=== PATIENT | female | born 1935 | race Caucasian/White ===

== ENCOUNTER 2016-11-06 09:30 | Emergency (ER) | payer OTHER ==
[2016-11-06 09:34] VITALS: TEMP 98.4; BMI 22.2
[2016-11-06] MEDS ORDERED: SODIUM CHLORIDE 1,000 ML IV SCH (10:00)
[2016-11-06 10:17] LABS: BASOPHIL 0.8 % (0-2.0); EOSINOPHIL 0.8 % (0-4.5); MCH 30.3 pg (25.7-33.7); MCHC 33.7 g/dl (32.0-36.0); MEAN CELL VOLUME 89.8 fl (80-96); MEAN PLT VOLUME 9.1 fl (7.5-11.1); NEUTROPHILS 56.3 % (42.8-82.8); PLATELET COUNT 276 K/MM3 (134-434); RDW 12.9 % (11.6-15.6); WHITE BLOOD COUNT 8.3 K/mm3 (4.0-10.0)
--- NOTE | 2016-11-06 10:44 | PDOC ---
History of Present Illness - General History Source: Patient Exam Limitations: No Limitations - History of Present Illness Initial Comments: 11/06/16 10:46 The patient is a 81 year old female, with a significant past medical history of hypertension, hyperlipidemia, and diabetes(NIDDM), who presents to the emergency department sent by Dr. Miller for evaluation of diarrhea. Dr. Miller reports the patients diarrhea has been going on for about 1 week. The patient describes her diarrhea as watery and black. Patient reports her stomach grumbles prior to an episode. She denies any associated abdominal pain, nausea , vomiting, hematochezia, or constipation. She denies any fever, chills, headache, or dizziness. She denies any recent travel or sick contacts. She denies any history of GI bleeds. Patient is compliant with her medications. Allergies: NKDA Past Surgical History: Appendectomy Social History: Non smoker. No ETOH or drug use PCP: Dr. Miller <Kaylyn Tamayo - Last Filed: 11/06/16 14:42> <Quinn Hilario - Last Filed: 11/06/16 15:06> - General Chief Complaint: Diarrhea Stated Complaint: DIARRHEA (PCP SENT) Time Seen by Provider: 11/06/16 09:46 Past History <Kaylyn Tamayo - Last Filed: 11/06/16 14:42> - Past Medical History Diabetes: Yes HTN: Yes Hypercholesterolemia: Yes Other medical history: SINUS PROBLEMS - Surgical History Abdominal Surgery: Yes (BLADDER LIFT) Appendectomy: Yes - Immunization History Immunization Up to Date: Yes - Psycho/Social/Smoking Cessation Hx Anxiety: No Suicidal Ideation: No Smoking History: Never smoked Hx Alcohol Use: No Drug/Substance Use Hx: No Substance Use Type: None <Quinn Hilario - Last Filed: 11/06/16 15:06> - Past Medical History Allergies/Adverse Reactions: Allergies Allergy/AdvReac Type Severity Reaction Status Date / Time No Known Allergies Allergy Verified 11/06/16 09:34 Home Medications: Ambulatory Orders Glimepiride 4 mg PO DAILY 11/25/13 Metoprolol Succinate [Toprol XL -] 25 mg PO DAILY 11/25/13 Simvastatin 10 mg PO HS 11/25/13 Lisinopril [Prinivil -] 20 mg PO DAILY 12/02/13 Pantoprazole Sodium [Protonix -] 40 mg PO BID #14 tablet.ec 11/06/16 Review of Systems - Review of Systems Able to Perform ROS?: Yes Comments:: 11/06/16 10:46 GENERAL/CONSTITUTIONAL: No fever or chills. No weakness. HEAD, EYES, EARS, NOSE AND THROAT: No change in vision. No ear pain or discharge. No sore throat. CARDIOVASCULAR: No chest pain or shortness of breath. RESPIRATORY: No cough, wheezing, or hemoptysis. GASTROINTESTINAL: Yes: +diarrhea, +melena. No nausea, vomiting, constipation, or hematochezia. GENITOURINARY: No dysuria, frequency, or change in urination. MUSCULOSKELETAL: No joint or muscle swelling or pain. No neck or back pain. SKIN: No rash NEUROLOGIC: No headache, vertigo, loss of consciousness, or change in strength/ sensation. ENDOCRINE: No increased thirst. No abnormal weight change. HEMATOLOGIC/LYMPHATIC: No anemia, easy bleeding, or history of blood clots. ALLERGIC/IMMUNOLOGIC: No hives or skin allergy. <Kaylyn Tamayo - Last Filed: 11/06/16 14:42> *Physical Exam - Vital Signs Last Vital Signs Temp Pulse Resp BP Pulse Ox 98.4 F 136 H 20 164/83 96 11/06/16 09:31 11/06/16 09:31 11/06/16 09:31 11/06/16 09:31 11/06/16 09:31 - Physical Exam Comments: 11/06/16 10:47 GENERAL: Awake, alert, and fully oriented, in no acute distress HEAD: No signs of trauma EYES: PERRLA, EOMI, sclera anicteric, conjunctiva clear ENT: Auricles normal inspection, hearing grossly normal, nares patent, oropharynx clear without exudates. Moist mucosa NECK: Normal ROM, supple, no lymphadenopathy, JVD, or masses LUNGS: Breath sounds equal, clear to auscultation bilaterally. No wheezes, and no crackles HEART: Regular rate and rhythm, normal S1 and S2, no murmurs, rubs or gallops ABDOMEN: Soft, nontender, normoactive bowel sounds. No guarding, no rebound. No masses EXTREMITIES: Normal range of motion, no edema. No clubbing or cyanosis. No cords , erythema, or tenderness NEUROLOGICAL: Cranial nerves II through XII grossly intact. Normal speech, normal gait SKIN: Warm, Dry, normal turgor, no rashes or lesions noted. <Kaylyn Tamayo - Last Filed: 11/06/16 14:42> - Vital Signs Last Vital Signs Temp Pulse Resp BP Pulse Ox 98.4 F 136 H 20 164/83 96 11/06/16 09:31 11/06/16 09:31 11/06/16 09:31 11/06/16 09:31 11/06/16 09:31 <Quinn Hilario - Last Filed: 11/06/16 15:06> Heart Score/ECG Review - ECG Intrepretation Comment:: 11/06/16 14:44 Vent. Rate: 94 bpm IMPRESSION: Normal sinus rhythm with sinus arrhythmia. <Kaylyn Tamayo - Last Filed: 11/06/16 14:42> ED Treatment Course - LABORATORY CBC & Chemistry Diagram: 11/06/16 10:00 11/06/16 10:00 - ADDITIONAL ORDERS Additional order review: Laboratory Results 11/06/16 10:00 Blood Type Cancelled Antibody Screen Cancelled Spec Expiration Date Cancelled 11/06/16 10:00 RBC 4.94 MCV 89.8 MCHC 33.7 RDW 12.9 MPV 9.1 Neutrophils % 56.3 Lymphocytes % 36.8 Monocytes % 5.3 Eosinophils % 0.8 Basophils % 0.8 - RADIOLOGY Radiograph Interpretation: 11/06/16 11:02 EXAM: CT Abdomen and Pelvis INTERPRETED BY: Dr. Fonseca REVIEWED BY: Dr. Hilario IMPRESSION: Poor oral contrast enhancement is limiting this exam Limited oral contrast opacification of the small bowel without gross wall thickening or obstruction. Nonopacified descending and sigmoid colon. The colon appears otherwise grossly unremarkable. No gross organomegaly, free air or free fluid identified. No enlarged lymph nodes are present. Tiny fat-containing umbilical hernia 2 benign-appearing right renal cysts. Likely left uterine myometrial fibroid measuring 3 cm for which correlation with pelvis ultrasound is recommended. <Kaylyn Tamayo - Last Filed: 11/06/16 14:42> - LABORATORY CBC & Chemistry Diagram: 11/06/16 10:00 11/06/16 10:00 - ADDITIONAL ORDERS Additional order review: Laboratory Results 11/06/16 10:00 Blood Type Cancelled Antibody Screen Cancelled Spec Expiration Date Cancelled 11/06/16 10:00 RBC 4.94 MCV 89.8 MCHC 33.7 RDW 12.9 MPV 9.1 Neutrophils % 56.3 Lymphocytes % 36.8 Monocytes % 5.3 Eosinophils % 0.8 Basophils % 0.8 <Quinn Hilario - Last Filed: 11/06/16 15:06> Medical Decision Making - Medical Decision Making 11/06/16 14:[address] Ibarra at 14:42. Agreed to discharge patient home with 40 mg of Protonix BID. Pt will follow-up with Dr. Ibarra for a scope. <Kaylyn Tamayo - Last Filed: 11/06/16 14:42> *DC/Admit/Observation/Transfer - Attestations Scribe Attestion: 11/06/16 10:47 Documentation prepared by Kaylyn Tamayo, acting as medical coding specialist for Quinn Hilario DO. <Kaylyn Tamayo - Last Filed: 11/06/16 14:42> - Discharge Dispostion Admit: No - Attestations Physician Attestion: 11/06/16 10:44 I, Dr. Quinn Hilario, attest that this document has been prepared under my direction and personally reviewed by me in its entirety. I further attest, that it accurately reflects all work, treatment, procedures and medical decision -making performed by me. <Quinn Hilario - Last Filed: 11/06/16 15:06> Diagnosis at time of Disposition: Melena, Hypertension - Discharge Dispostion Disposition: HOME Condition at time of disposition: Good - Prescriptions Prescriptions: Pantoprazole Sodium [Protonix -] 40 mg PO BID #14 tablet.ec - Referrals Referrals: Genaro Ibarra MD [Primary Care Provider] - - Patient Instructions Printed Discharge Instructions: Gastrointestinal Bleeding Additional Instructions: See Dr. Robles first thing tomorrow. Return to us if worse or any problems
[2016-11-06 10:49] LABS: ALBUMIN 4.1 g/dl (3.4-5.0); ANION GAP 10 (8-16); BILIRUBIN,TOTAL 0.5 mg/dL (0.2-1.0); CALCIUM 9.7 mg/dL (8.5-10.1); CO2 27 mmol/L (21-32); CREATININE 0.8 mg/dL (0.55-1.02); GLUCOSE,RANDOM 166 mg/dL (74-106); SGPT/ALT 32 U/L (12-78)
[2016-11-06 10:50] LABS: ALK PHOS 100 U/L (45-117)
[2016-11-06 11:12] LABS: SGOT/AST 26 U/L (15-37)
[2016-11-06 11:24] LABS: URINE APPEARANCE CLEAR; URINE BILIRUBIN NEGATIVE (NEGATIVE); URINE BLOOD NEGATIVE (NEGATIVE); URINE COLOR COLORLESS; URINE GLUCOSE (UA) 1+ (NEGATIVE); URINE KETONE NEGATIVE (NEGATIVE); URINE LEUK ESTERASE NEGATIVE (NEGATIVE); URINE NITRITE NEGATIVE (NEGATIVE); URINE PROTEIN NEGATIVE (NEGATIVE); URINE UROBILINOGEN NEGATIVE mg/dL (0.2-1.0)
[2016-11-06 11:28] LABS: TROPONIN I < 0.02 ng/ml (0.00-0.05)
--- NOTE | 2016-11-06 13:20 | EKG ---
Test Reason : Blood Pressure : / mmHG Vent. Rate : 094 BPM Atrial Rate : 094 BPM P-R Int : 172 ms QRS Dur : 082 ms QT Int : 362 ms P-R-T Axes : 049 -03 068 degrees QTc Int : 452 ms NORMAL SINUS RHYTHM WITH SINUS ARRHYTHMIA POSSIBLE ANTERIOR INFARCT , AGE UNDETERMINED ABNORMAL ECG WHEN COMPARED WITH ECG OF 11-JUL-2015 12:21, NO SIGNIFICANT CHANGE WAS FOUND Confirmed by NILDA DIAZ MD ([id number]) on 11/06/2016 1:20:12 PM Referred By: Confirmed By:NILDA DIAZ MD
[2016-11-06 15:19] VITALS: BP 130/70; PULSE 80
== END 2016-11-06 15:32 | disposition home or self-care (01) ==
LOC: JER 09:30
DX: K92.1 Melena (principal); I10 Essential (primary) hypertension; E78.5 Hyperlipidemia, unspecified; E11.9 Type 2 diabetes mellitus without complications
CPT/HCPCS: 36415; 74177-TC; 80053; 81003; 82550; 83690; 84484; 85025; 87045; 87046; 87186; 93005; 93010; 99285-25; Q9967

== ENCOUNTER 2019-12-14 10:58 | Inpatient (IN) | payer OTHER ==
[2019-12-14 11:16] VITALS: BMI 24.0
--- NOTE | 2019-12-14 11:51 | PDOC ---
History of Present Illness - General Chief Complaint: Injury Stated Complaint: FALL Time Seen by Provider: 12/14/19 11:48 Past History - Medical History Allergies/Adverse Reactions: Allergies Allergy/AdvReac Type Severity Reaction Status Date / Time No Known Allergies Allergy Verified 11/06/16 09:34 Home Medications: Ambulatory Orders Glimepiride 4 mg PO DAILY 11/25/13 Metoprolol Succinate [Toprol XL -] 25 mg PO DAILY 11/25/13 Simvastatin 10 mg PO HS 11/25/13 Lisinopril [Prinivil -] 20 mg PO DAILY 12/02/13 Pantoprazole Sodium [Protonix -] 40 mg PO BID #14 tablet.ec 11/06/16 COPD: No Diabetes: Yes HTN: Yes Hypercholesterolemia: Yes - Surgical History Abdominal Surgery: Yes (BLADDER LIFT) Appendectomy: Yes - Reproductive History Is Patient Now?: No - Immunization History Immunization Up to Date: Yes - Psycho-Social/Smoking History Smoking History: Never smoked Have you smoked in the past 12 months: No Information on smoking cessation initiated: No - Substance Abuse Hx (Audit-C & DAST Scrn) How often the patient has a drink containing alcohol: Never Score: In Men: 4 or > Positive; In Women: 3 or > Positive: 0 Screen Result (Pos requires Nsg. Audit-10AR): Negative In the last yr the pt used illegal drug/Rx for NonMed reason: No Score: Yes response is considered Positive: 0 Screen Result (Positive result requires Nsg. DAST-10): Negative *Physical Exam - Vital Signs Last Vital Signs Temp Pulse Resp BP Pulse Ox 98.2 F 103 H 20 174/86 H 96 12/14/19 11:08 12/14/19 11:08 12/14/19 11:08 12/14/19 11:08 12/14/19 11:08 Discharge - Follow up/Referral Referrals: Genaro Ibarra MD [Primary Care Provider] - - Patient Discharge Instructions - Post Discharge Activity
--- NOTE | 2019-12-14 12:53 | PDOC ---
History of Present Illness - General Chief Complaint: Injury Stated Complaint: FALL Time Seen by Provider: 12/14/19 11:48 - History of Present Illness Initial Comments: 12/14/19 12:35 84yo F with PMH HTN, HLD, DM was BIBA with left hip/groin/upper leg pain after a mechanical fall. Around 9am this morning, she tripped on the curb and hit her left elbow and hip on the pavement. Denies headstrike or LOC. Not on aspirin or AC. She was able to ambulate with assistance from neighbors. She complains of dull left hip pain, non-radiating. Has not taken any medication for it. Worse with movement. Denies headache, neck pain, back pain. Denies incontinence or retention. ROS otherwise negative. PCP: Stacey PMH/PSH: as above Meds: metformin, lisinopril Allergies: none ROS GENERAL/CONSTITUTIONAL: No fever or chills. No weakness. HEAD, EYES, EARS, NOSE AND THROAT: No change in vision. No ear pain or discharge. No sore throat. CARDIOVASCULAR: No chest pain or shortness of breath RESPIRATORY: No cough, wheezing, or hemoptysis. GASTROINTESTINAL: No nausea, vomiting, diarrhea or constipation. GENITOURINARY: No dysuria, frequency, or change in urination. MUSCULOSKELETAL: Left hip, upper leg, and groin pain. No neck or back pain. SKIN: abrasion on left elbow NEUROLOGIC: No headache, vertigo, loss of consciousness, or change in strength/sensation. ENDOCRINE: No increased thirst. No abnormal weight change HEMATOLOGIC/LYMPHATIC: No anemia, easy bleeding, or history of blood clots. ALLERGIC/IMMUNOLOGIC: No hives or skin allergy. PE GENERAL: Awake, alert, and fully oriented, in no acute distress HEAD: No signs of trauma, normocephalic, atraumatic EYES: PERRLA, EOMI, sclera anicteric, conjunctiva clear ENT: Auricles normal inspection, hearing grossly normal, nares patent, oropharynx clear without exudates. Moist mucosa NECK: Normal ROM, supple, no lymphadenopathy, JVD, or masses. no midline tenderness LUNGS: No distress, speaks full sentences, clear to auscultation bilaterally HEART: Regular rate and rhythm, normal S1 and S2, no murmurs, rubs or gallops, peripheral pulses normal and equal bilaterally. ABDOMEN: Soft, nontender, normoactive bowel sounds. No guarding, no rebound. No masses EXTREMITIES : Left upper leg and groin tender to palpation. No midline tenderness. No bony tenderness on pelvis. passive and active ROM and strength at left hip limited by pain. Normal sensation, distal pulses, no ecchymosis. Normal ROM and strength in all other extremities. No edema. No clubbing or cyanosis. NEUROLOGICAL: Cranial nerves II through XII grossly intact. Normal speech, no focal sensorimotor deficits SKIN: abrasion on left elbow. Warm, Dry, normal turgor Vital Signs Temp Pulse Resp BP Pulse Ox 98.2 F 103 H 20 174/86 H 96 12/14/19 11:08 12/14/19 11:08 12/14/19 11:08 12/14/19 11:08 12/14/19 11:08 MDM 84yo female presents with left hip pain after a mechanical fall. Low concern for cardiac or neurological cause of the fall given clear story of mechanical fall. Concern for left femur vs. pelvic fracture vs. dislocation vs. sprain. -plain films L hip and femur -50mcg fentanyl for pain prior to being moved for imaging EKG: NSR with occasional PVCs, rate 100, normal axis and intervals, no ischemic changes 12/14/19 14:07 Plain films: Left femoral neck impacted fracture with mild displacement Will call ortho and admit Admission and pre-op labs: cbc, cmp, coas, T&S, CXR, covid 12/14/19 14:31 Spoke with ortho who recommended CT to confirm that this is a new fracture. Will admit. No need for NPO, as surgery will not be today 12/14/19 15:33 Signed out to admitting PCP Stacey Past History - Medical History Allergies/Adverse Reactions: Allergies Allergy/AdvReac Type Severity Reaction Status Date / Time No Known Allergies Allergy Verified 11/06/16 09:34 Home Medications: Ambulatory Orders Glimepiride 4 mg PO DAILY 11/25/13 Metoprolol Succinate [Toprol XL -] 25 mg PO DAILY 11/25/13 Simvastatin 10 mg PO HS 11/25/13 Lisinopril [Prinivil -] 20 mg PO DAILY 12/02/13 Pantoprazole Sodium [Protonix -] 40 mg PO BID #14 tablet.ec 11/06/16 COPD: No Diabetes: Yes HTN: Yes Hypercholesterolemia: Yes - Surgical History Abdominal Surgery: Yes (BLADDER LIFT) Appendectomy: Yes - Reproductive History Is Patient Now?: No - Immunization History Immunization Up to Date: Yes - Psycho-Social/Smoking History Smoking History: Never smoked Have you smoked in the past 12 months: No Information on smoking cessation initiated: No - Substance Abuse Hx (Audit-C & DAST Scrn) How often the patient has a drink containing alcohol: Never Score: In Men: 4 or > Positive; In Women: 3 or > Positive: 0 Screen Result (Pos requires Nsg. Audit-10AR): Negative In the last yr the pt used illegal drug/Rx for NonMed reason: No Score: Yes response is considered Positive: 0 Screen Result (Positive result requires Nsg. DAST-10): Negative *Physical Exam - Vital Signs Last Vital Signs Temp Pulse Resp BP Pulse Ox 98.2 F 103 H 20 174/86 H 96 12/14/19 11:08 12/14/19 11:08 12/14/19 11:08 12/14/19 11:08 12/14/19 11:08 ED Treatment Course - LABORATORY CBC & Chemistry Diagram: 12/14/19 14:40 12/14/19 14:40 - RADIOLOGY Radiology Studies Ordered: Category Date Time Status FEMUR-LEFT [RAD] Stat Radiology 12/14/19 12:31 Ordered HIP & PELVIS-LEFT [RAD] Stat Radiology 12/14/19 12:31 Ordered Discharge - Discharge Information Problems reviewed: Yes Clinical Impression/Diagnosis: Hip fracture Qualifiers: Encounter type: initial encounter Fracture type: closed Laterality: left Qualified Code(s): S72.002A - Fracture of unspecified part of neck of left femur, initial encounter for closed fracture Condition: Stable - Follow up/Referral - Patient Discharge Instructions - Post Discharge Activity
--- NOTE | 2019-12-14 13:54 | PDOC ---
Documentation entered by Fausto Cash SCRIBE, acting as scribe for Tri Stahl MD. Tri Stahl MD: This documentation has been prepared by the scribe, Fausto Cash SCRIBE, under my direction and personally reviewed by me in its entirety. I confirm that the documentation accurately reflects all work, treatment, procedures, and medical decision making performed by me. Attending Attestation - Resident Resident Name: GonsaloSaul - ED Attending Attestation I have performed the following: I have examined & evaluated the patient, The case was reviewed & discussed with the resident, I agree w/resident's findings & plan, Exceptions are as noted - HPI HPI: 12/14/19 13:02 The patient is an 84 year old female with a significant past medical history of HTN, HLD, and NIDDM who presents to the emergency department, [facility], for evaluation of dull, nonradiating left hip,groin, and leg pain after a mechanical fall this morning. The patient reports pain is worsened with movement. She t ripped outside today, causing her to hit her left elbow and hip on the pavement. Allergies: NKDA Past Surgical History: Appendectomy Social History: Non smoker. No ETOH or drug use PCP: Dr. Miller - Physicial Exam PE: 12/14/19 12:05 GENERAL: Awake, alert, and fully oriented. Appears in obvious discomfort. HEAD: No signs of trauma EYES: PERRLA, EOMI, sclera anicteric, conjunctiva clear ENT: Auricles normal inspection, hearing grossly normal, nares patent, oropharynx clear without exudates. Moist mucosa NECK: Normal ROM, supple, no lymphadenopathy, JVD, or masses LUNGS: Breath sounds equal, clear to auscultation bilaterally. No wheezes, and no crackles HEART: Regular rate and rhythm, normal S1 and S2, no murmurs, rubs or gallops ABDOMEN: Soft, nontender, normoactive bowel sounds. No guarding, no rebound. No masses EXTREMITIES: L hip held in forward flexion, unable to range due to severe pain. +deformity to the L proximal femur. Remainder of extremities with normal range of motion, no edema. No clubbing or cyanosis. No cords, erythema, or tenderness NEUROLOGICAL: Cranial nerves II through XII grossly intact. Normal speech. No sensorimotor deficits SKIN: Warm, Dry, normal turgor, no rashes. +Abrasion to the L elbow, no bony tenderness. - Medical Decision Making Pt with L hip/femur tenderness, unable to move the hip joint. Suspected fx. Will obtain XR. Plan for admission. 12/14/19 14:16 XR with L hip fx. Will consult ortho, admit. Discharge - Discharge Information Problems reviewed: Yes Clinical Impression/Diagnosis: Hip fracture Qualifiers: Encounter type: initial encounter Fracture type: closed Laterality: left Qualified Code(s): S72.002A - Fracture of unspecified part of neck of left femur, initial encounter for closed fracture Condition: Stable - Follow up/Referral Referrals: Genaro Ibarra MD [Primary Care Provider] - - Patient Discharge Instructions - Post Discharge Activity
[2019-12-14] MEDS ORDERED: ONDANSETRON 4 MG/2 ML VIAL IVPUSH ONE ×2 (14:12→15:48)
[2019-12-14 15:18] LABS: BASO % 0.1 % (0-2.0); HEMATOCRIT 45.3 % (32.4-45.2); MCH 29.6 pg (25.7-33.7); MEAN CELL VOLUME 89.5 fl (80-96); MEAN PLT VOLUME 9.6 fl (7.5-11.1); MONO % 3.5 % (3.8-10.2); NEUT % 90.4 % (42.8-82.8); PLATELET COUNT 267 K/MM3 (134-434); RBC 5.06 M/mm3 (3.60-5.2); RDW 12.9 % (11.6-15.6); WHITE BLOOD COUNT 17.4 K/mm3 (4.0-10.0)
[2019-12-14 15:23] LABS: INR 0.98 (0.83-1.09); PROTHROMBIN TIME (PATIENT) 11.6 SEC (9.7-13.0)
[2019-12-14 15:26] LABS: ACTIVATED PTT 29.4 SECONDS (25.2-36.5)
[2019-12-14 15:44] LABS: ALBUMIN 4.3 g/dl (3.4-5.0); BILIRUBIN,TOTAL 0.5 mg/dL (0.2-1); BLOOD UREA NITROGEN 12.9 mg/dL (7-18); CALCIUM 9.7 mg/dL (8.5-10.1); CREATININE 0.8 mg/dL (0.55-1.3); TOT PROT 8.2 g/dl (6.4-8.2)
--- NOTE | 2019-12-14 18:24 | CON.ORTH ---
Consult - History of Present Illness History of Present Illness: 84-year-old female sustained a mechanical fall when walking and hit uneven pavement this morning. She is here with her daughter and was brought into the hospital for pain in the left hip. I was called for orthopedic consultation. She denies other complaints. She denies chest pain shortness of breath or other causes of the fall. She states it is mechanical. She denies other injuries. No numbness or tingling. She has a active person who walks daily - Past Medical History ...: No - Alcohol/Substance Use Hx Alcohol Use: No - Smoking History Smoking history: Never smoked Have you smoked in the past 12 months: No Home Medications - Allergies Allergies/Adverse Reactions: Allergies Allergy/AdvReac Type Severity Reaction Status Date / Time No Known Allergies Allergy Verified 11/06/16 09:34 - Home Medications Home Medications: Ambulatory Orders Glimepiride 4 mg PO DAILY 11/25/13 Metoprolol Succinate [Toprol XL -] 25 mg PO DAILY 11/25/13 Simvastatin 10 mg PO HS 11/25/13 Lisinopril [Prinivil -] 20 mg PO DAILY 12/02/13 Pantoprazole Sodium [Protonix -] 40 mg PO BID #14 tablet.ec 11/06/16 Physical Exam for Ortho Vital Signs: Vital Signs Temperature 98.2 F 12/14/19 11:08 Pulse Rate 105 H 12/14/19 13:59 Respiratory Rate 20 12/14/19 13:59 Blood Pressure 153/82 12/14/19 13:59 O2 Sat by Pulse Oximetry (%) 97 12/14/19 13:59 Labs: CBC, BMP 12/14/19 14:40 12/14/19 14:40 INR, PTT INR 0.98 (0.83-1.09) 12/14/19 14:40 Other Findings/Remarks: Patient examined at bedside. She is with her daughter. She is alert and oriented 3 and in no acute distress. Her leg lengths are normal. She has no tenderness to palpation. She has pain with axial load and rotation of the left hip. She has 2+ pulses distally and she has intact sensation. Her right lower extremity and bilateral upper extremities and spine are nontender and atraumatic. Compartments are soft. Imaging - Results X-ray: Image Reviewed Cat Scan: Image Reviewed (X-rays and the CAT scan of the pelvis and left hip are reviewed: There is an acute minimally displaced impacted femoral neck fracture.) Assessment/Plan Left femoral neck fracture Plan: I have had a long discussion with the patient and her daughter regarding the findings and treatment options. We have together decided on proceeding with open reduction and internal fixation. Risks benefits alternatives of this procedure and the likely prognosis were discussed at length. Relatively high morbidity and mortality risk of any hip fracture was also discussed. They understand that my associate Dr. Segovia will most likely be performing the surgery. Patient will be medically cleared we will proceed once cleared and all are available
--- NOTE | 2019-12-14 19:55 | HP ---
Admitting History and Physical - Primary Care Physician PCP: Jaxson Mendoza - Admission Chief Complaint: fell today History of Present Illness: 84 year old female with a significant past medical history of HTN, HLD, and NIDDM who presents to the emergency department, [facility], for evaluation of dull, nonradiating left hip,groin, and leg pain after a mechanical fall this morning that outdoors. She denied LOC, dizziness before or after falling. The patient reports pain is worsened with movement. She also to hit her left elbow and hip on the pavement. She does not have a Hx of falls. She was recently seen by her PCP a week ago or so and found to be stable. 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 History of Recent Travel: No Home Medications - Allergies Allergies/Adverse Reactions: Allergies Allergy/AdvReac Type Severity Reaction Status Date / Time No Known Allergies Allergy Verified 11/06/16 09:34 - Home Medications Home Medications: Ambulatory Orders Glimepiride 4 mg PO DAILY 11/25/13 Metoprolol Succinate [Toprol XL -] 25 mg PO DAILY 11/25/13 Simvastatin 10 mg PO HS 11/25/13 Lisinopril [Prinivil -] 20 mg PO DAILY 12/02/13 Pantoprazole Sodium [Protonix -] 40 mg PO BID #14 tablet.ec 11/06/16 Family Medical History Family History: Unremarkable Review of Systems - Review of Systems Constitutional: reports: No Symptoms Eyes: reports: No Symptoms HENT: reports: No Symptoms Neck: reports: No Symptoms Cardiovascular: reports: No Symptoms Respiratory: reports: No Symptoms Gastrointestinal: reports: No Symptoms Genitourinary: reports: No Symptoms Breasts: reports: No Symptoms Reported Musculoskeletal: reports: Joint Pain (Lt hip) Integumentary: reports: Wound (abrasion on Lt elbow) Neurological: reports: No Symptoms Endocrine: reports: No Symptoms Hematology/Lymphatic: reports: No Symptoms Psychiatric: reports: No Symptoms Physical Examination Vital Signs: Vital Signs Temperature 98.9 F 12/14/19 16:00 Pulse Rate 105 H 12/14/19 16:00 Respiratory Rate 20 12/14/19 16:00 Blood Pressure 153/82 12/14/19 16:00 O2 Sat by Pulse Oximetry (%) 97 12/14/19 19:04 Findings/Remarks: skin--skin abrasion on skin sub adjacent to the elbow head--NC eyes--midline neck--able to flex it w/o problem lungs--clear heart--RR abd--soft, NT, ND Groin--no open wounds or ecchymosis; some Lt lateral groin tenderness ext--no CCE; pedal pulses felt on both feet neuro--alert; lucid coherent understands what has happened to her and the injury she has; has motor capabilities in all extrems Laboratory Results - last 24 hr 12/14/19 12/14/19 12/14/19 13:55 14:40 14:40 WBC 17.4 H RBC 5.06 Hgb 15.0 Hct 45.3 H MCV 89.5 MCH 29.6 MCHC 33.0 RDW 12.9 Plt Count 267 MPV 9.6 Absolute Neuts (auto) 15.7 H Neutrophils % 90.4 H Lymphocytes % 6.0 L D Monocytes % 3.5 L Eosinophils % 0.0 D Basophils % 0.1 Nucleated RBC % 0 PT with INR 11.60 INR 0.98 PTT (Actin FS) 29.4 Sodium Potassium Chloride Carbon Dioxide Anion Gap BUN Creatinine Est GFR (CKD-EPI)AfAm Est GFR (CKD-EPI)NonAf POC Glucometer 208 Random Glucose Calcium Total Bilirubin AST ALT Alkaline Phosphatase Total Protein Albumin Blood Type Antibody Screen Antibody Identification Antigen Identification 12/14/19 12/14/19 14:40 14:40 WBC RBC Hgb Hct MCV MCH MCHC RDW Plt Count MPV Absolute Neuts (auto) Neutrophils % Lymphocytes % Monocytes % Eosinophils % Basophils % Nucleated RBC % PT with INR INR PTT (Actin FS) Sodium 138 Potassium 4.0 Chloride 104 Carbon Dioxide 22 Anion Gap 13 BUN 12.9 Creatinine 0.8 Est GFR (CKD-EPI)AfAm 79.57 Est GFR (CKD-EPI)NonAf 68.66 POC Glucometer Random Glucose 205 H Calcium 9.7 Total Bilirubin 0.5 AST 25 ALT 25 Alkaline Phosphatase 108 Total Protein 8.2 Albumin 4.3 Blood Type O POSITIVE Antibody Screen Positive Antibody Identification Fya Antigen Identification Fya Antigen - NEGATIVE Labs: CBC, BMP 12/14/19 14:40 12/14/19 14:40 Imaging - Results Chest X-ray: Report Reviewed X-ray: Report Reviewed Problem List - Problems (1) Hip fracture Assessment/Plan: Lt hip 2/2 fall as described PLAN: hope to do ORIF when stable Code(s): S72.009A - FRACTURE OF UNSP PART OF NECK OF UNSP FEMUR, INIT Qualifiers: Encounter type: initial encounter Fracture type: closed Laterality: left Qualified Code(s): S72.002A - Fracture of unspecified part of neck of left femu r, initial encounter for closed fracture (2) Hypertension Assessment/Plan: SBP a bit high; will add CCB; likely exacerbated by pain Problems reviewed: Yes Code(s): I10 - ESSENTIAL (PRIMARY) HYPERTENSION Qualifiers: Hypertension type: essential hypertension Qualified Code(s): I10 - Essential (primary) hypertension (3) Diabetes Assessment/Plan: BS in 200's will need to stop anti-glycemics for now and just use insulin coverage pre op Code(s): E11.9 - TYPE 2 DIABETES MELLITUS WITHOUT COMPLICATIONS Qualifiers: Diabetes mellitus type: type 2 Diabetes mellitus skilled nursing insulin use: without skilled nursing use Diabetes mellitus complication status: without complication Qualified Code(s): E11.9 - Type 2 diabetes mellitus without complications (4) Leukocytosis, unspecified Assessment/Plan: possible demargination of vascular leukocytes in reaction to trauma; not on steroids and not toxic or ill appearing. PLAN: recheck in AM; check UA Code(s): D72.829 - ELEVATED WHITE BLOOD CELL COUNT, UNSPECIFIED Qualifiers: Leukocytosis type: leukemoid reaction Qualified Code(s): D72.823 - Leukemoid reaction (5) Lipidemia Assessment/Plan: on statin Code(s): E78.5 - HYPERLIPIDEMIA, UNSPECIFIED Qualifiers: Hyperlipidemia type: unspecified Qualified Code(s): E78.5 - Hyperlipidemia, unspecified (6) Chronic GERD Assessment/Plan: helped with PPI Code(s): K21.9 - GASTRO-ESOPHAGEAL REFLUX DISEASE WITHOUT ESOPHAGITIS Assessment/Plan 84 YO F s/p Lt HIP fx from a mech fall; mgmt as outlined above. ~~~~~~~~~~~~~~~~~~~~~~~~~~~~ END Dr Amayaci
[2019-12-14] MEDS ORDERED: metoPROLOL SUCCINATE 25 MG TAB.SR.24H (FP) PO ONE (20:12)
[2019-12-14] MEDS ORDERED: HYDROmorphone HCL 2 MG TABLET PO PRN (20:17)
[2019-12-14] MEDS: LISINOPRIL 10 MG TABLET (FP) PO SCH (21:29)
[2019-12-14] MEDS: DOCUSATE SODIUM 100 MG CAPSULE (FP) PO SCH (21:30)
[2019-12-14] MEDS ORDERED: HEPARIN NA (PORCINE) 5,000 UNITS/ML 1ML VIAL SQ SCH (22:00)
[2019-12-15 01:57] LABS: EPI CELLS 4 /uL (0-25.1); HYALINE CASTS 0 /uL (0-3.1); PH,URINE 7.5 (5.0-8.0); URINE APPEARANCE CLEAR; URINE BACTERIA 309 /uL (0-1359); URINE BILIRUBIN NEGATIVE (NEGATIVE); URINE COLOR YELLOW; URINE GLUCOSE (UA) 2+ (NEGATIVE); URINE KETONE NEGATIVE (NEGATIVE); URINE LEUK ESTERASE NEGATIVE (NEGATIVE); URINE NITRITE NEGATIVE (NEGATIVE); URINE PROTEIN NEGATIVE (NEGATIVE); URINE RBC 18 /uL (0-23.9); URINE UROBILINOGEN 0.2 mg/dL (0.2-1.0); URINE WBC 2 /uL (0-25.8)
[2019-12-15] MEDS: INSULIN SLIDING SCALE (NOVOLOG) 1 VIAL SQ SCH ×3 (06:15→16:17)
[2019-12-15 09:41] LABS: HEMATOCRIT 44.3 % (32.4-45.2); HEMOGLOBIN 14.7 GM/dL (10.7-15.3); MCH 29.8 pg (25.7-33.7); MCHC 33.2 g/dl (32.0-36.0); MEAN CELL VOLUME 89.7 fl (80-96); MEAN PLT VOLUME 9.9 fl (7.5-11.1); PLATELET COUNT 265 K/MM3 (134-434); RBC 4.94 M/mm3 (3.60-5.2); WHITE BLOOD COUNT 12.2 K/mm3 (4.0-10.0)
[2019-12-15] MEDS ORDERED: metoPROLOL SUCCINATE 25 MG TAB.SR.24H (FP) PO SCH (10:00)
[2019-12-15 10:09] LABS: BLOOD UREA NITROGEN 13.6 mg/dL (7-18); CALCIUM 9.5 mg/dL (8.5-10.1); CREATININE 0.8 mg/dL (0.55-1.3); POTASSIUM 4.2 mmol/L (3.5-5.1)
[2019-12-15] MEDS: LISINOPRIL 10 MG TABLET (FP) PO SCH ×2 (10:22→21:25)
[2019-12-15] MEDS: DOCUSATE SODIUM 100 MG CAPSULE (FP) PO SCH ×2 (10:22→21:25)
[2019-12-15] MEDS: PANTOPRAZOLE 40 MG TABLET PO SCH (10:22)
--- NOTE | 2019-12-15 10:26 | EKG ---
Test Reason : Blood Pressure : / mmHG Vent. Rate : 100 BPM Atrial Rate : 100 BPM P-R Int : 176 ms QRS Dur : 082 ms QT Int : 338 ms P-R-T Axes : 058 015 072 degrees QTc Int : 436 ms SINUS RHYTHM WITH OCCASIONAL PREMATURE VENTRICULAR COMPLEXES ANTERIOR INFARCT (CITED ON OR BEFORE 06-NOV-2016) ABNORMAL ECG WHEN COMPARED WITH ECG OF 06-NOV-2016 10:45, PREMATURE VENTRICULAR COMPLEXES ARE NOW PRESENT Confirmed by MD Nam, Dimitri ([id number]) on 12/15/2019 10:26:29 AM Referred By: Confirmed By:Dimitri Browning MD
[2019-12-15] MEDS ORDERED: methylPREDNISolone NA SUCC 40 MG/1 ML VIAL IVPUSH ONE (16:00)
--- NOTE | 2019-12-15 16:00 | PN ---
Progress Note (short form) - Note Progress Note: Active Medications Docusate Sodium (Colace -) 100 mg PO BID [facility] Last Admin: 12/15/19 10:22 Dose: 100 mg Documented by: Hydromorphone HCl (Dilaudid -) 2 mg PO Q6H PRN PRN Reason: PAIN LEVEL 6-10 Last Admin: 12/15/19 14:44 Dose: 2 mg Documented by: Insulin Aspart (Novolog Vial Sliding Scale -) 1 vial SQ TIDAC [facility]; Protocol Last Admin: 12/15/19 11:44 Dose: Not Given Documented by: Lisinopril (Prinivil) 10 mg PO BID [facility] Last Admin: 12/15/19 10:22 Dose: 10 mg Documented by: Metoprolol Succinate (Toprol Xl -) 25 mg PO BID [facility] Pantoprazole Sodium (Protonix -) 40 mg PO DAILY [facility] Last Admin: 12/15/19 10:22 Dose: 40 mg Documented by: Laboratory Results - last 24 hr 12/14/19 12/14/19 12/14/19 14:40 20:05 22:33 WBC RBC Hgb Hct MCV MCH MCHC RDW Plt Count MPV Sodium Potassium Chloride Carbon Dioxide Anion Gap BUN Creatinine Est GFR (CKD-EPI)AfAm Est GFR (CKD-EPI)NonAf POC Glucometer Random Glucose Hemoglobin A1c % Calcium TSH Urine Color Yellow Urine Appearance Clear Urine pH 7.5 D Ur Specific Olga 1.008 L Urine Protein Negative Urine Glucose (UA) 2+ H Urine Ketones Negative Urine Blood Trace Urine Nitrite Negative Urine Bilirubin Negative Urine Urobilinogen 0.2 Ur Leukocyte Esterase Negative Urine WBC (Auto) 2 Urine RBC (Auto) 18 Urine Casts (Auto) 0 U Epithel Cells (Auto) 4 Urine Bacteria (Auto) 309 COVID-19 (HIRA) Not detected Blood Type O POSITIVE Antibody Screen Positive Antibody Identification Fya Antigen Identification Fya Antigen - NEGATIVE 12/15/19 12/15/19 12/15/19 06:14 07:55 07:55 WBC 12.2 H RBC 4.94 Hgb 14.7 Hct 44.3 MCV 89.7 MCH 29.8 MCHC 33.2 RDW 13.0 Plt Count 265 MPV 9.9 Sodium 138 Potassium 4.2 Chloride 102 Carbon Dioxide 27 Anion Gap 9 BUN 13.6 Creatinine 0.8 Est GFR (CKD-EPI)AfAm 79.57 Est GFR (CKD-EPI)NonAf 68.66 POC Glucometer 142 Random Glucose 144 H Hemoglobin A1c % Calcium 9.5 TSH 0.94 Urine Color Urine Appearance Urine pH Ur Specific Olga Urine Protein Urine Glucose (UA) Urine Ketones Urine Blood Urine Nitrite Urine Bilirubin Urine Urobilinogen Ur Leukocyte Esterase Urine WBC (Auto) Urine RBC (Auto) Urine Casts (Auto) U Epithel Cells (Auto) Urine Bacteria (Auto) COVID-19 (HIRA) Blood Type Antibody Screen Antibody Identification Antigen Identification 12/15/19 12/15/19 07:55 11:32 WBC RBC Hgb Hct MCV MCH MCHC RDW Plt Count MPV Sodium Potassium Chloride Carbon Dioxide Anion Gap BUN Creatinine Est GFR (CKD-EPI)AfAm Est GFR (CKD-EPI)NonAf POC Glucometer 213 Random Glucose Hemoglobin A1c % 7.2 H Calcium TSH Urine Color Urine Appearance Urine pH Ur Specific Olga Urine Protein Urine Glucose (UA) Urine Ketones Urine Blood Urine Nitrite Urine Bilirubin Urine Urobilinogen Ur Leukocyte Esterase Urine WBC (Auto) Urine RBC (Auto) Urine Casts (Auto) U Epithel Cells (Auto) Urine Bacteria (Auto) COVID-19 (HIRA) Blood Type Antibody Screen Antibody Identification Antigen Identification Vital Signs Temperature 98.1 F 12/15/19 13:59 Pulse Rate 99 H 12/15/19 13:59 Respiratory Rate 20 12/15/19 13:59 Blood Pressure 164/92 12/15/19 13:59 O2 Sat by Pulse Oximetry (%) 94 L 12/15/19 13:59 CC: new onset of Lt knee pain this AM ``````````````````````````````````` skin--NL color eyes--midline heart--RR lungs--clear abd--benign ext--guarded LLE; Lt knee with some swelling; pain to touch w/o redness neuro--alert; coherent & Lucid; no motor deficits ```````````````````````````````````````` summ > Lt Imp Hip FX--for surgery in AM; she appears to be sufficiently stable > LT knee pain--with Hx of partial meniscal tear and has previous episode which was remedied with steroid injection into the knee joint. PLAN: IV Solumedrol stat > HTN--high SBP fueled by painful state; will increase the BB to BId > DM--on BGMs w/ coverage > Leukocytosis--improved; 2/2 acute stress > PVC's on EKG--unifocal; doubt any acute Cardiac pathology ````````````````````````````````````````````` d/w daughter ~~~~~~~~~~~~~~~~~~~~~~~~~~ Dr Mendoza Problem List - Problems (1) Hip fracture Code(s): S72.009A - FRACTURE OF UNSP PART OF NECK OF UNSP FEMUR, INIT Qualifiers: Encounter type: initial encounter Fracture type: closed Laterality: left Qualified Code(s): S72.002A - Fracture of unspecified part of neck of left femur, initial encounter for closed fracture (2) Hypertension Code(s): I10 - ESSENTIAL (PRIMARY) HYPERTENSION Qualifiers: Hypertension type: essential hypertension Qualified Code(s): I10 - Essential (primary) hypertension (3) Diabetes Code(s): E11.9 - TYPE 2 DIABETES MELLITUS WITHOUT COMPLICATIONS Qualifiers: Diabetes mellitus type: type 2 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 use: without senior living use Diabetes mellitus complication status: without complication Qualified Code(s): E11.9 - Type 2 diabetes mellitus without complications (4) Leukocytosis, unspecified Code(s): D72.829 - ELEVATED WHITE BLOOD CELL COUNT, UNSPECIFIED Qualifiers: Leukocytosis type: leukemoid reaction Qualified Code(s): D72.823 - Leukemoid reaction (5) Lipidemia Code(s): E78.5 - HYPERLIPIDEMIA, UNSPECIFIED Qualifiers: Hyperlipidemia type: unspecified Qualified Code(s): E78.5 - Hyperlipidemia, unspecified (6) Chronic GERD Code(s): K21.9 - GASTRO-ESOPHAGEAL REFLUX DISEASE WITHOUT ESOPHAGITIS
[2019-12-15] MEDS ORDERED: methylPREDNISolone NA SUCC 40 MG/1 ML VIAL IVPUSH STA (16:01)
--- NOTE | 2019-12-15 17:24 | PN ---
Progress Note, Physician History of Present Illness: She is resting in bed. She started having pain in the right knee today. Was not having any pain yesterday. has hx of arthritis and meniscal tear in left knee. Received cortisone injection last year which completely resolved pain - Current Medication List Current Medications: Active Medications Docusate Sodium (Colace -) 100 mg PO BID [facility] Last Admin: 12/15/19 10:22 Dose: 100 mg Documented by: Hydromorphone HCl (Dilaudid -) 2 mg PO Q6H PRN PRN Reason: PAIN LEVEL 6-10 Last Admin: 12/15/19 14:44 Dose: 2 mg Documented by: Insulin Aspart (Novolog Vial Sliding Scale -) 1 vial SQ TIDAC [facility]; Protocol Last Admin: 12/15/19 16:17 Dose: Not Given Documented by: Lisinopril (Prinivil) 10 mg PO BID [facility] Last Admin: 12/15/19 10:22 Dose: 10 mg Documented by: Metoprolol Succinate (Toprol Xl -) 25 mg PO BID [facility] Pantoprazole Sodium (Protonix -) 40 mg PO DAILY [facility] Last Admin: 12/15/19 10:22 Dose: 40 mg Documented by: - Objective Vital Signs: Vital Signs Temperature 98.1 F 12/15/19 13:59 Pulse Rate 99 H 12/15/19 13:59 Respiratory Rate 20 12/15/19 13:59 Blood Pressure 164/92 12/15/19 13:59 O2 Sat by Pulse Oximetry (%) 94 L 12/15/19 13:59 Constitutional: Yes: Well Nourished, No Distress, Calm Extremities: Yes: Other (pain with motion of left knee and hip. there is mild edema along the knee. There is moderate tenderness along the lateral and medial joint spaces of the knee. No effusion. No other areas of tenderness. NVID.) Labs: CBC, BMP 12/15/19 07:55 12/15/19 07:55 INR, PTT INR 0.98 (0.83-1.09) 12/14/19 14:40 - ....Imaging X-ray: Report Reviewed (Left hip CT shows impacted femoral neck fracture Left femur x-rays show arthorsis of knee. no fracture), Image Reviewed Assessment/Plan #1 Left femoral neck fracture -plan for ORIF tomorrow with dr. mahan. all questions answered -DVT prophaxis -pain control -npo after midnight #2 Left knee pain -Hx of arthritis. recived IV Solumedrol. Knee is feeling a little better. -X-rays reviewed and neg for fracture -will observe for now
[2019-12-15] MEDS: metoPROLOL SUCCINATE 25 MG TAB.SR.24H (FP) PO SCH (21:25)
[2019-12-16] MEDS: INSULIN SLIDING SCALE (NOVOLOG) 1 VIAL SQ SCH ×3 (06:03→16:56)
[2019-12-16] MEDS: LISINOPRIL 10 MG TABLET (FP) PO SCH ×2 (09:32→21:26)
[2019-12-16] MEDS: PANTOPRAZOLE 40 MG TABLET PO SCH (09:32)
[2019-12-16] MEDS: metoPROLOL SUCCINATE 25 MG TAB.SR.24H (FP) PO SCH (09:32)
[2019-12-16] MEDS: DOCUSATE SODIUM 100 MG CAPSULE (FP) PO SCH ×2 (09:32→21:25)
--- NOTE | 2019-12-16 12:35 | EKG ---
Test Reason : Blood Pressure : / mmHG Vent. Rate : 079 BPM Atrial Rate : 079 BPM P-R Int : 172 ms QRS Dur : 082 ms QT Int : 360 ms P-R-T Axes : 055 015 062 degrees QTc Int : 412 ms NORMAL SINUS RHYTHM NORMAL ECG WHEN COMPARED WITH ECG OF 14-DEC-2019 11:16, PREMATURE VENTRICULAR COMPLEXES ARE NO LONGER PRESENT Confirmed by NATE TORREZ MD ([id number]) on 12/16/2019 12:34:51 PM Referred By: EDVIN MALONE,[facility] Confirmed By:NATE TORREZ MD
[2019-12-16] MEDS ORDERED: ONDANSETRON 4 MG/2 ML VIAL IVPUSH PRN ×2 (12:43→14:24)
[2019-12-16] MEDS ORDERED: PROMETHAZINE HCL 25 MG/1 ML VIAL IVPUSH PRN ×2 (12:43→14:24)
[2019-12-16] MEDS ORDERED: LACTATED RINGERS SOLUTION 1,000 ML IV SCH ×2 (12:45→14:24)
[2019-12-16] MEDS ORDERED: ceFAZolin SODIUM 1 GM VIAL ONE (12:47)
[2019-12-16] MEDS ORDERED: MIDAZOLAM HCL 2 MG/2 ML SINGLE DOSE VIAL ONE (12:47)
[2019-12-16] MEDS ORDERED: SODIUM CHLORIDE 0.9% P/F 10 ML VIAL IJ ONE (12:47)
[2019-12-16] MEDS ORDERED: ceFAZolin 2 GRAM PREMIX BAG IVPB ONE (13:00)
[2019-12-16] MEDS ORDERED: METOPROLOL TARTRATE 5 MG/5 ML VIAL ONE (13:15)
[2019-12-16] MEDS ORDERED: morphine SULFATE 4 MG/ML VIAL IM PRN ×2 (14:15→14:24)
[2019-12-16] MEDS ORDERED: ACETAMINOPHEN 325 MG TABLET (FP) PO PRN ×2 (14:15→14:24)
[2019-12-16] MEDS ORDERED: oxyCODONE HCL 5 MG TABLET PO PRN ×3 (14:15→14:24)
--- NOTE | 2019-12-16 15:53 | PN ---
Progress Note (short form) - Note Progress Note: Active Medications Acetaminophen (Tylenol -) 650 mg PO Q4H PRN PRN Reason: FEVER Ascorbic Acid (Vitamin C -) 500 mg PO BID [facility] Docusate Sodium (Colace -) 100 mg PO BID [facility] Enoxaparin Sodium (Lovenox -) 30 mg SQ DAILY [facility] Fentanyl (Sublimaze Injection -) 50 mcg IVPUSH [id number] PRN PRN Reason: PAIN-PACU ORDER X 4 DOSES ONLY Stop: 12/16/19 17:00 Ferrous Sulfate (Feosol -) 325 mg PO TIDCM [facility] Cefazolin Sodium (Ancef 1 Gm Premixed Ivpb -) 1 gm in 50 mls @ 100 mls/hr IVPB Q8H-IV DAREK Stop: 12/17/19 02:29 Lactated Ringer's (Lactated Ringers Solution) 1,000 mls @ 125 mls/hr IV ASDIR [facility] Insulin Aspart (Novolog Vial Sliding Scale -) 1 vial SQ TIDAC [facility]; Protocol Lisinopril (Prinivil) 10 mg PO BID [facility] Metoprolol Succinate (Toprol Xl -) 25 mg PO DAILY [facility] Morphine Sulfate (Morphine Sulfate) 4 mg IM Q3H PRN PRN Reason: Pain Level 8-10 Ondansetron HCl (Zofran Injection) 4 mg IVPUSH Q6H PRN PRN Reason: NAUSEA AND/OR VOMITING Oxycodone HCl (Roxicodone -) 10 mg PO Q4H PRN PRN Reason: PAIN LEVEL 4-8 Oxycodone HCl (Roxicodone -) 5 mg PO Q3H PRN PRN Reason: PAIN LEVEL 1 - 3 Pantoprazole Sodium (Protonix -) 40 mg PO DAILY [facility] Promethazine HCl (Phenergan Injection -) 12.5 mg IVPUSH Q6H PRN PRN Reason: NAUSEA-FOR RESCUE AFTER 15 MIN Laboratory Results - last 24 hr 12/15/19 12/16/19 12/16/19 16:16 00:46 06:01 POC Glucometer 153 267 228 12/16/19 11:17 POC Glucometer 146 Vital Signs Temperature 97.7 F 12/16/19 16:35 Pulse Rate 80 12/16/19 16:35 Respiratory Rate 20 12/16/19 16:35 Blood Pressure 149/84 12/16/19 16:35 O2 Sat by Pulse Oximetry (%) 97 12/16/19 16:35 CC: Lt hip pain post OP `````````````````````````` heart--RR eyes--midline lungs--grossly clear ext--w/ dressing and SCD's neuro--awake; coherent; speech is fluenet; no focal deficits ``````````````````````````````````````````````` summ > Lt Hip Fx--s/p ORIF; Mgmt as per Ortho > Htn--BP in adequate range at this point; cont ESTEVAN BID > DM--on BGMs w/ coverage > Lt knee pain--helped somewhat w/ steroid injection ~~~~~~~~~~~~~~~~~~~~~~~~~~~~~~~~~~ Dr Mendoza (d/w daughter at bedside) Problem List - Problems (1) Hip fracture Code(s): S72.009A - FRACTURE OF UNSP PART OF NECK OF UNSP FEMUR, INIT Qualifiers: Encounter type: initial encounter Fracture type: closed Laterality: left Qualified Code(s): S72.002A - Fracture of unspecified part of neck of left femur, initial encounter for closed fracture (2) Hypertension Code(s): I10 - ESSENTIAL (PRIMARY) HYPERTENSION Qualifiers: Hypertension type: essential hypertension Qualified Code(s): I10 - Essential (primary) hypertension (3) Diabetes Code(s): E11.9 - TYPE 2 DIABETES MELLITUS WITHOUT COMPLICATIONS Qualifiers: Diabetes mellitus type: type 2 Diabetes 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: [facility] ocean transportation intermediary use Diabetes mellitus complication status: without complication Qualified Code(s): E11.9 - Type 2 diabetes mellitus without complications (4) Leukocytosis, unspecified Code(s): D72.829 - ELEVATED WHITE BLOOD CELL COUNT, UNSPECIFIED Qualifiers: Leukocytosis type: leukemoid reaction Qualified Code(s): D72.823 - Leukemoid reaction (5) Lipidemia Code(s): E78.5 - HYPERLIPIDEMIA, UNSPECIFIED Qualifiers: Hyperlipidemia type: unspecified Qualified Code(s): E78.5 - Hyperlipidemia, unspecified (6) Chronic GERD Code(s): K21.9 - GASTRO-ESOPHAGEAL REFLUX DISEASE WITHOUT ESOPHAGITIS
[2019-12-16 17:08] LABS: HEMATOCRIT 44.4 % (32.4-45.2); HEMOGLOBIN 14.6 GM/dL (10.7-15.3); MCH 29.8 pg (25.7-33.7); MCHC 32.8 g/dl (32.0-36.0); MEAN CELL VOLUME 90.9 fl (80-96); MEAN PLT VOLUME 9.6 fl (7.5-11.1); PLATELET COUNT 258 K/MM3 (134-434); RBC 4.89 M/mm3 (3.60-5.2); RDW 13.1 % (11.6-15.6); WHITE BLOOD COUNT 16.1 K/mm3 (4.0-10.0)
[2019-12-16] MEDS: oxyCODONE HCL 5 MG TABLET PO PRN ×2 (17:14→21:26)
[2019-12-16] MEDS: FERROUS SO4 325 MG TABLET (FP) PO SCH (17:16)
[2019-12-16] MEDS ORDERED: FERROUS SO4 325 MG TABLET (FP) PO SCH (17:30)
[2019-12-16] MEDS: ASCORBIC ACID 500 MG TABLET (FP) PO SCH (21:26)
[2019-12-16] MEDS ORDERED: ASCORBIC ACID 500 MG TABLET (FP) PO SCH (22:00)
[2019-12-16] MEDS ORDERED: metoPROLOL SUCCINATE 25 MG TAB.SR.24H (FP) PO SCH (22:00)
--- NOTE | 2019-12-16 23:36 | OP ---
DATE OF OPERATION: 12/16/2019 PREOPERATIVE DIAGNOSIS: Left compacted femoral neck fracture. POSTOPERATIVE DIAGNOSIS: Left compacted femoral neck fracture. PROCEDURE: Left hip pinning. SURGEON: Moise Segovia MD IT QUALITY ANALYST: Lucie Robison PA-C, physician event sales assistant, whose skillful assistance was necessary for the safety and timely performance of this procedure. Ms. Robison was able to provide limb positioning, retraction, assist in fracture reduction and the insertion of orthopedic fixation hardware. IMPLANTS: Saravanan 6.5 cannulated screws x3. COMPLICATIONS: None. POSTOPERATIVE CONDITION: Stable. INDICATIONS: This is an 84 -year-old female who suffered a trip and fall. She was found to have a valgus-impacted femoral neck fracture. Treatment options were discussed, including nonoperative versus operative management. Operative risks were reviewed in detail, including bleeding, infection, neurovascular injury, need for further surgery, postoperative pain and stiffness, nonunion, malunion, hardware failure or cut-out. We discussed medical risks such as heart attack, stroke, DVT, PE and . We discussed that fractures to do tend to heal but in the case it did not, hemiarthroplasty could be necessary. I discussed of nonoperative care, which would involve the potential for displacement of the fracture then requiring later hemiarthroplasty. I reviewed postoperative rehabilitation protocol. I addressed all the patient's questions and concerns. She voiced understanding and elected to proceed. PROCEDURE: The patient was brought to the operating room where spinal anesthesia was administered. The left lower extremity was then prepped and draped in the usual sterile fashion after positioning the patient on the fracture table. Care had been taken to pad all the bony prominences and the leg was placed into position of neutral traction and slight internal rotation. Patient was given a preoperative dose of antibiotics and the usual timeout procedure was performed. Incision was then planned out over the lateral aspect of the femur just adjacent the lesser trochanter. This was carried down through skin and subcutaneous tissue. A guide wire was then drilled from the lateral cortex, along the course of the femoral neck, up to the femoral head. The initial guide wire was placed anterior and inferior; a parallel wire was then placed posterior and slightly more superior, and the third wire was placed more anterior and more superior in addition. All wires were parallel. All wires were made sure to stay above the level of the lesser trochanter. After verifying all 3 wire placements fluoroscopy, the wires were measured. The near cortex was then overdrilled. Two 75-mm and one 70-mm screw was placed more posteriorly. Excellent purchase was achieved. Screw placement was verified fluoroscopy in 2 planes. After confirming all screws were in satisfactory position, the guide wire was removed. Final fluoroscopy was performed, demonstrating satisfactory hardware placement and fracture reduction. The wound was now copiously irrigated. The subcutaneous tissue was approximated with 2-0 Vicryl. Skin was closed 3-0 nylon. Sterile dressings placed. The patient was transferred to the recovery room in stable condition. Jossie [id number]
[2019-12-17] MEDS ORDERED: CEFAZOLIN 1 GM in DEXTROSE 5%-WATER - 50 ML IVPB SCH (01:00)
[2019-12-17] MEDS: CEFAZOLIN 1 GM/D5W 1 GM/50 ML BAG IVPB SCH ×2 (01:06→02:10)
[2019-12-17] MEDS: oxyCODONE HCL 5 MG TABLET PO PRN ×2 (01:06→20:09)
[2019-12-17] MEDS: INSULIN SLIDING SCALE (NOVOLOG) 1 VIAL SQ SCH ×3 (06:15→17:06)
[2019-12-17 08:48] LABS: HEMOGLOBIN 13.8 GM/dL (10.7-15.3); MCH 30.2 pg (25.7-33.7); MCHC 33.6 g/dl (32.0-36.0); MEAN CELL VOLUME 89.6 fl (80-96); MEAN PLT VOLUME 9.7 fl (7.5-11.1); PLATELET COUNT 250 K/MM3 (134-434); RBC 4.58 M/mm3 (3.60-5.2); RDW 12.7 % (11.6-15.6); WHITE BLOOD COUNT 12.1 K/mm3 (4.0-10.0)
[2019-12-17 09:10] LABS: BLOOD UREA NITROGEN 15.9 mg/dL (7-18); CALCIUM 8.6 mg/dL (8.5-10.1); CREATININE 0.8 mg/dL (0.55-1.3); POTASSIUM 4.2 mmol/L (3.5-5.1)
[2019-12-17] MEDS: ASCORBIC ACID 500 MG TABLET (FP) PO SCH ×2 (10:19→21:46)
[2019-12-17] MEDS: FERROUS SO4 325 MG TABLET (FP) PO SCH ×3 (10:20→17:07)
[2019-12-17] MEDS: PANTOPRAZOLE 40 MG TABLET PO SCH (10:20)
[2019-12-17] MEDS: DOCUSATE SODIUM 100 MG CAPSULE (FP) PO SCH ×2 (10:20→21:46)
[2019-12-17] MEDS: LISINOPRIL 10 MG TABLET (FP) PO SCH ×2 (10:20→21:46)
[2019-12-17] MEDS: metoPROLOL SUCCINATE 25 MG TAB.SR.24H (FP) PO SCH (10:20)
--- NOTE | 2019-12-17 11:47 | PN ---
Progress Note, Physician Chief Complaint: s/p left hip canulated screws under spinal anesthesia History of Present Illness: post op day one - Current Medication List Current Medications: Active Medications Acetaminophen (Tylenol -) 650 mg PO Q4H PRN PRN Reason: FEVER Ascorbic Acid (Vitamin C -) 500 mg PO BID [facility] Last Admin: 12/17/19 10:19 Dose: 500 mg Documented by: Docusate Sodium (Colace -) 100 mg PO BID [facility] Last Admin: 12/17/19 10:20 Dose: 100 mg Documented by: Enoxaparin Sodium (Lovenox -) 30 mg SQ DAILY [facility] Ferrous Sulfate (Feosol -) 325 mg PO TIDCM [facility] Last Admin: 12/17/19 11:36 Dose: Not Given Documented by: Lactated Ringer's (Lactated Ringers Solution) 1,000 mls @ 125 mls/hr IV ASDIR [facility] Last Admin: 12/16/19 17:16 Dose: 125 mls/hr Documented by: Insulin Aspart (Novolog Vial Sliding Scale -) 1 vial SQ TIDAC [facility]; Protocol Last Admin: 12/17/19 11:36 Dose: Not Given Documented by: Lisinopril (Prinivil) 10 mg PO BID [facility] Last Admin: 12/17/19 10:20 Dose: 10 mg Documented by: Metoprolol Succinate (Toprol Xl -) 25 mg PO DAILY [facility] Last Admin: 12/17/19 10:20 Dose: 25 mg Documented by: Morphine Sulfate (Morphine Sulfate) 4 mg IM Q3H PRN PRN Reason: Pain Level 8-10 Ondansetron HCl (Zofran Injection) 4 mg IVPUSH Q6H PRN PRN Reason: NAUSEA AND/OR VOMITING Last Admin: 12/17/19 10:38 Dose: 4 mg Documented by: Oxycodone HCl (Roxicodone -) 10 mg PO Q4H PRN PRN Reason: PAIN LEVEL 4-8 Oxycodone HCl (Roxicodone -) 5 mg PO Q3H PRN PRN Reason: PAIN LEVEL 1 - 3 Last Admin: 12/17/19 01:06 Dose: 5 mg Documented by: Pantoprazole Sodium (Protonix -) 40 mg PO DAILY [facility] Last Admin: 12/17/19 10:20 Dose: 40 mg Documented by: Promethazine HCl (Phenergan Injection -) 12.5 mg IVPUSH Q6H PRN PRN Reason: NAUSEA-FOR RESCUE AFTER 15 MIN - Objective Vital Signs: Vital Signs Temperature 97.9 F 12/17/19 06:00 Pulse Rate 74 12/17/19 06:00 Respiratory Rate 18 12/17/19 06:00 Blood Pressure 153/65 12/17/19 06:00 O2 Sat by Pulse Oximetry (%) 95 12/17/19 06:00 Constitutional: Yes: Well Nourished Cardiovascular: Yes: WNL Respiratory: Yes: WNL, On Nasal O2 Gastrointestinal: Yes: WNL Labs: CBC, BMP 12/17/19 07:53 12/17/19 07:53 INR, PTT INR 0.98 (0.83-1.09) 12/14/19 14:40 Assessment/Plan No adverse effects of anesthetic, dept of anesthesia will sign off care at this time
[2019-12-17 11:55] LABS: URIC ACID 3.8 mg/dL (2.6-7.2)
--- NOTE | 2019-12-17 12:01 | PN ---
Progress Note (short form) - Note Progress Note: Current Medications Generic Name Dose Route Start Last Admin Trade Name Freq PRN Reason Stop Dose Admin Acetaminophen 650 mg 12/16/19 14:24 Tylenol - PO Q4H PRN FEVER Ascorbic Acid 500 mg 12/16/19 22:00 12/17/19 10:19 Vitamin C - PO 500 mg BID [facility] Administration Docusate Sodium 100 mg 12/16/19 22:00 12/17/19 10:20 Colace - PO 100 mg BID [facility] Administration Enoxaparin Sodium 30 mg 12/17/19 12:00 Lovenox - SQ DAILY [facility] Ferrous Sulfate 325 mg 12/16/19 17:30 12/17/19 11:36 Feosol - PO Not Given TIDCM [facility] Lactated Ringer's 1,000 mls @ 125 mls/hr 12/16/19 14:24 12/16/19 17:16 Lactated Ringers Solution IV 125 mls/hr ASDIR [facility] Administration Insulin Aspart 1 vial 12/16/19 16:30 12/17/19 11:36 Novolog Vial Sliding Scale - SQ Not Given TIDAC [facility] Protocol Lisinopril 10 mg 12/16/19 22:00 12/17/19 10:20 Prinivil PO 10 mg BID [facility] Administration Metoprolol Succinate 25 mg 12/17/19 10:00 12/17/19 10:20 Toprol Xl - PO 25 mg DAILY [facility] Administration Morphine Sulfate 4 mg 12/16/19 14:24 Morphine Sulfate IM Q3H PRN Pain Level 8-10 Ondansetron HCl 4 mg 12/16/19 14:24 12/17/19 10:38 Zofran Injection IVPUSH 4 mg Q6H PRN Administration NAUSEA AND/OR VOMITING Oxycodone HCl 10 mg 12/16/19 14:24 Roxicodone - PO Q4H PRN PAIN LEVEL 4-8 Oxycodone HCl 5 mg 12/16/19 14:24 12/17/19 01:06 Roxicodone - PO 5 mg Q3H PRN Administration PAIN LEVEL 1 - 3 Pantoprazole Sodium 40 mg 12/17/19 10:00 12/17/19 10:20 Protonix - PO 40 mg DAILY [facility] Administration Promethazine HCl 12.5 mg 12/16/19 14:24 Phenergan Injection - IVPUSH Q6H PRN NAUSEA-FOR RESCUE AFTER 15 MIN Discontinued Medications Generic Name Dose Route Start Last Admin Trade Name Freq PRN Reason Stop Dose Admin Acetaminophen 650 mg 12/16/19 14:15 Tylenol - PO Q4H PRN FEVER Ascorbic Acid 500 mg 12/16/19 22:00 Vitamin C - PO BID [facility] Docusate Sodium 100 mg 12/14/19 22:00 12/16/19 09:32 Colace - PO Not Given BID [facility] Enoxaparin Sodium 30 mg 12/17/19 14:15 Lovenox - SQ DAILY [facility] Enoxaparin Sodium 30 mg 12/17/19 14:15 Lovenox - SQ DAILY [facility] Fentanyl 50 mcg 12/14/19 12:30 12/14/19 13:00 Sublimaze Injection - IVPUSH 12/14/19 12:31 50 mcg ONCE ONE Administration Fentanyl 50 mcg 12/16/19 12:43 Sublimaze Injection - IVPUSH 12/16/19 17:00 [id number] PRN PAIN-PACU ORDER X 4 DOSES ONLY Fentanyl 50 mcg 12/16/19 14:24 Sublimaze Injection - IVPUSH 12/16/19 17:00 [id number] PRN PAIN-PACU ORDER X 4 DOSES ONLY Ferrous Sulfate 325 mg 12/16/19 17:30 Feosol - PO TIDCM [facility] Heparin Sodium (Porcine) 5,000 unit 12/14/19 22:00 12/14/19 21:30 Heparin - SQ 5,000 unit BID [facility] Administration Hydromorphone HCl 2 mg 12/14/19 20:17 12/15/19 14:44 Dilaudid - PO 2 mg Q6H PRN Administration PAIN LEVEL 6-10 Lactated Ringer's 1,000 mls @ 125 mls/hr 12/16/19 12:45 Lactated Ringers Solution IV ASDIR [facility] Cefazolin Sodium 1 gm/ 50 mls @ 100 mls/hr 12/17/19 01:00 Dextrose IVPB 12/17/19 09:29 Q8H [facility] Cefazolin Sodium 1 gm in 50 mls @ 100 mls/hr 12/17/19 01:00 12/17/19 02:10 Ancef 1 Gm Premixed Ivpb - IVPB 12/17/19 02:29 100 mls/hr Q8H-IV [facility] Administration Insulin Aspart 1 vial 12/15/19 07:00 12/16/19 11:30 Novolog Vial Sliding Scale - SQ Not Given TIDAC [facility] Protocol Lisinopril 10 mg 12/14/19 22:00 12/16/19 09:32 Prinivil PO Not Given BID [facility] Methylprednisolone Sodium Succinate 20 mg 12/15/19 16:00 12/15/19 16:18 Solu-Medrol - IVPUSH 12/15/19 16:01 Not Given ONCE ONE Methylprednisolone Sodium Succinate 20 mg 12/15/19 16:01 12/15/19 16:12 Solu-Medrol - IVPUSH 12/15/19 16:02 20 mg ONCE STA Administration Metoprolol Succinate 12.5 mg 12/14/19 20:12 12/14/19 21:29 Toprol Xl - PO 12/14/19 20:13 12.5 mg DAILY ONE Administration Metoprolol Succinate 25 mg 12/15/19 10:00 12/15/19 10:22 Toprol Xl - PO 25 mg DAILY [facility] Administration Metoprolol Succinate 25 mg 12/15/19 22:00 12/16/19 09:32 Toprol Xl - PO Not Given BID [facility] Metoprolol Succinate 25 mg 12/16/19 22:00 Toprol Xl - PO BID [facility] Morphine Sulfate 4 mg 12/16/19 14:15 Morphine Sulfate IM Q3H PRN Pain Level 8-10 Ondansetron HCl 4 mg 12/14/19 14:12 12/14/19 14:59 Zofran Injection IVPUSH 12/14/19 14:13 Not Given ONCE ONE Ondansetron HCl 4 mg 12/14/19 15:48 12/14/19 16:09 Zofran Injection IVPUSH 12/14/19 15:49 Not Given ONCE ONE Ondansetron HCl 4 mg 12/16/19 12:43 Zofran Injection IVPUSH Q6H PRN NAUSEA AND/OR VOMITING Oxycodone HCl 10 mg 12/16/19 14:15 Roxicodone - PO Q4H PRN PAIN LEVEL 4-8 Oxycodone HCl 5 mg 12/16/19 14:15 Roxicodone - PO Q3H PRN PAIN LEVEL 1 - 3 Pantoprazole Sodium 40 mg 12/15/19 10:00 12/16/19 09:32 Protonix - PO Not Given DAILY [facility] Promethazine HCl 12.5 mg 12/16/19 12:43 Phenergan Injection - IVPUSH Q6H PRN NAUSEA-FOR RESCUE AFTER 15 MIN Laboratory Results - last 24 hr 12/16/19 12/16/19 12/17/19 16:30 16:51 06:13 WBC 16.1 H RBC 4.89 Hgb 14.6 Hct 44.4 MCV 90.9 MCH 29.8 MCHC 32.8 RDW 13.1 Plt Count 258 MPV 9.6 Sodium Potassium Chloride Carbon Dioxide Anion Gap BUN Creatinine Est GFR (CKD-EPI)AfAm Est GFR (CKD-EPI)NonAf POC Glucometer 147 162 Random Glucose Uric Acid Calcium 12/17/19 12/17/19 12/17/19 07:53 07:53 11:26 WBC 12.1 H RBC 4.58 Hgb 13.8 Hct 41.0 MCV 89.6 MCH 30.2 MCHC 33.6 RDW 12.7 Plt Count 250 MPV 9.7 Sodium 137 Potassium 4.2 Chloride 102 Carbon Dioxide 26 Anion Gap 8 BUN 15.9 Creatinine 0.8 Est GFR (CKD-EPI)AfAm 79.57 Est GFR (CKD-EPI)NonAf 68.66 POC Glucometer 225 Random Glucose 165 H Uric Acid 3.8 Calcium 8.6 Vital Signs Temperature 97.9 F 12/17/19 06:00 Pulse Rate 74 12/17/19 06:00 Respiratory Rate 18 12/17/19 06:00 Blood Pressure 153/65 12/17/19 06:00 O2 Sat by Pulse Oximetry (%) 95 12/17/19 06:00 CC: some pain to Lt hip but mild; had nausea this AM; but okay now ````````````````````````````````````````````````````````````` skin--NL color heart--RR lungs--clear abd--benign ext--surg site clean; Lt knee non tender neuro--awake, alert, coherent; moves all extrem on command `````````````````````````````````````````` Summ > Nausea--this AM, now abated; CBC WNL; likley effect of analgesiscs > Htn--BP in fair range post OP > DM--off DM meds for now; appetite suboptimal > s/p Lt Hip Orif--stable; started PT `````````````````````````````````` Dr Mnedoza Problem List - Problems (1) Hip fracture Code(s): S72.009A - FRACTURE OF UNSP PART OF NECK OF UNSP FEMUR, INIT Qualifiers: Encounter type: initial encounter Fracture type: closed Laterality: left Qualified Code(s): S72.002A - Fracture of unspecified part of neck of left femur, initial encounter for closed fracture (2) Hypertension Code(s): I10 - ESSENTIAL (PRIMARY) HYPERTENSION Qualifiers: Hypertension type: essential hypertension Qualified Code(s): I10 - Essential (primary) hypertension (3) Diabetes Code(s): E11.9 - TYPE 2 DIABETES MELLITUS WITHOUT COMPLICATIONS Qualifiers: Diabetes mellitus type: type 2 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
[2019-12-17] MEDS: ENOXAPARIN NA (PORCINE) 30 MG/0.3 ML DISP.SYRIN SQ SCH (12:20)
[2019-12-17] MEDS ORDERED: ENOXAPARIN NA (PORCINE) 30 MG/0.3 ML DISP.SYRIN SQ SCH ×2 (14:15)
--- NOTE | 2019-12-17 14:42 | PN ---
Progress Note (short form) - Note Progress Note: 84 yo F POD #1 s/p left hip pinning. Patient is lying comfortably in bed with son at bedside. States she has mild pain to left hip. She worked with PT earlier today and took a few steps with walker. Last Vital Signs Temp Pulse Resp BP Pulse Ox 97.9 F 74 18 153/65 95 12/17/19 06:00 12/17/19 06:00 12/17/19 06:00 12/17/19 06:00 12/17/19 06:00 PE: LLE Dressing C/D/I Compartments soft Calves soft NT NVID 2+ DP pulses Abnormal Lab Results 12/16/19 12/17/19 12/17/19 16:30 07:53 07:53 WBC 16.1 H 12.1 H Random Glucose 165 H A: POD #1 s/p left hip pinning P: Pain Control Continue PT TTWB DVT Prophylaxis
[2019-12-17] MEDS ORDERED: LACTATED RINGERS SOLUTION 1,000 ML IV SCH (17:44)
[2019-12-18] MEDS: INSULIN SLIDING SCALE (NOVOLOG) 1 VIAL SQ SCH ×3 (06:22→17:02)
[2019-12-18] MEDS: metoPROLOL SUCCINATE 25 MG TAB.SR.24H (FP) PO SCH (09:41)
[2019-12-18] MEDS: PANTOPRAZOLE 40 MG TABLET PO SCH (09:41)
[2019-12-18] MEDS: FERROUS SO4 325 MG TABLET (FP) PO SCH ×3 (09:41→16:59)
[2019-12-18] MEDS: LISINOPRIL 10 MG TABLET (FP) PO SCH ×2 (09:42→21:59)
[2019-12-18] MEDS: ASCORBIC ACID 500 MG TABLET (FP) PO SCH ×2 (09:42→22:00)
[2019-12-18] MEDS: ENOXAPARIN NA (PORCINE) 30 MG/0.3 ML DISP.SYRIN SQ SCH (09:42)
[2019-12-18] MEDS: DOCUSATE SODIUM 100 MG CAPSULE (FP) PO SCH ×2 (09:42→21:59)
--- NOTE | 2019-12-18 11:40 | PN ---
Progress Note (short form) - Note Progress Note: 84 yo F POD #2 s/p left hip pinning. Patient is lying comfortably in bed. Worked with PT prior to evaluation. She states she feels the leg is stronger than yesterday. She has less pain to left leg as compared to yesterday. Last Vital Signs Temp Pulse Resp BP Pulse Ox 98.8 F 68 18 140/68 95 12/18/19 05:37 12/18/19 05:37 12/18/19 05:37 12/18/19 05:37 12/18/19 05:37 PE: LLE Dressing C/D/I Compartments soft Calves soft NT NVID 2+ DP pulses A: POD #2 s/p left hip pinning P: Pain Control Continue PT TTWB DVT Prophylaxis Okay to discharge to rehab facility once cleared by medicine and PT teams
[2019-12-18 12:39] LABS: HEMATOCRIT 43.6 % (32.4-45.2); HEMOGLOBIN 14.5 GM/dL (10.7-15.3); MCH 29.9 pg (25.7-33.7); MCHC 33.2 g/dl (32.0-36.0); MEAN CELL VOLUME 90.1 fl (80-96); MEAN PLT VOLUME 9.6 fl (7.5-11.1); PLATELET COUNT 308 K/MM3 (134-434); RBC 4.83 M/mm3 (3.60-5.2); RDW 12.8 % (11.6-15.6); WHITE BLOOD COUNT 11.5 K/mm3 (4.0-10.0)
[2019-12-18] MEDS ORDERED: BISACODYL 5 MG TABLET.DR (FP) PO ONE (15:57)
--- NOTE | 2019-12-18 15:57 | PN ---
Progress Note (short form) - Note Progress Note: Active Medications Acetaminophen (Tylenol -) 650 mg PO Q4H PRN PRN Reason: FEVER Ascorbic Acid (Vitamin C -) 500 mg PO BID [facility] Last Admin: 12/18/19 09:42 Dose: 500 mg Documented by: Docusate Sodium (Colace -) 100 mg PO BID [facility] Last Admin: 12/18/19 09:42 Dose: 100 mg Documented by: Enoxaparin Sodium (Lovenox -) 30 mg SQ DAILY [facility] Last Admin: 12/18/19 09:42 Dose: 30 mg Documented by: Ferrous Sulfate (Feosol -) 325 mg PO TIDCM [facility] Last Admin: 12/18/19 12:44 Dose: 325 mg Documented by: Glipizide (Glucotrol Xl -) 2.5 mg PO DAILY@0700 [facility] Lactated Ringer's (Lactated Ringers Solution) 1,000 mls @ 50 mls/hr IV ASDIR [facility] Last Admin: 12/17/19 21:47 Dose: 50 mls/hr Documented by: Insulin Aspart (Novolog Vial Sliding Scale -) 1 vial SQ TIDAC [facility]; Protocol Last Admin: 12/18/19 12:45 Dose: 3 units Documented by: Lisinopril (Prinivil) 10 mg PO BID [facility] Last Admin: 12/18/19 09:42 Dose: 10 mg Documented by: Metoprolol Succinate (Toprol Xl -) 25 mg PO DAILY [facility] Last Admin: 12/18/19 09:41 Dose: 25 mg Documented by: Morphine Sulfate (Morphine Sulfate) 4 mg IM Q3H PRN PRN Reason: Pain Level 8-10 Ondansetron HCl (Zofran Injection) 4 mg IVPUSH Q6H PRN PRN Reason: NAUSEA AND/OR VOMITING Last Admin: 12/17/19 10:38 Dose: 4 mg Documented by: Oxycodone HCl (Roxicodone -) 5 mg PO Q3H PRN PRN Reason: PAIN LEVEL 1 - 3 Last Admin: 12/17/19 20:09 Dose: 5 mg Documented by: Pantoprazole Sodium (Protonix -) 40 mg PO DAILY [facility] Last Admin: 12/18/19 09:41 Dose: 40 mg Documented by: Promethazine HCl (Phenergan Injection -) 12.5 mg IVPUSH Q6H PRN PRN Reason: NAUSEA-FOR RESCUE AFTER 15 MIN Laboratory Results - last 24 hr 12/17/19 12/18/19 12/18/19 17:05 06:19 11:30 WBC RBC Hgb Hct MCV MCH MCHC RDW Plt Count MPV POC Glucometer 195 200 257 12/18/19 12:04 WBC 11.5 H RBC 4.83 Hgb 14.5 Hct 43.6 MCV 90.1 MCH 29.9 MCHC 33.2 RDW 12.8 Plt Count 308 D MPV 9.6 POC Glucometer Vital Signs Temperature 98.8 F 12/18/19 05:37 Pulse Rate 68 12/18/19 05:37 Respiratory Rate 18 12/18/19 05:37 Blood Pressure 140/68 12/18/19 05:37 O2 Sat by Pulse Oximetry (%) 95 12/18/19 05:37 CC: Rt post knee pain ```````````````````````` skin--NL color heart--RR lungs--clear abd--benign ext--(+) tenderness behind Rt knee in soft tissue; no mass or swelling appreciated; no redness neuro--alert; verbal; no focal deficits `````````````````````````````````````` Summ > Rt knee pain--probably because she is putting more weight on the knee while doing PT; has analgesia > Nausea--resolved > Htn--BP in fair range post OP; cont current agents > DM--BS is high, will now resume low dose sulfanyl urea > constip--add more laxative > s/p Lt Hip Orif--stable, see ortho note `````````````````````````````````` Dr Mendoza Problem List - Problems (1) Hip fracture Code(s): S72.009A - FRACTURE OF UNSP PART OF NECK OF UNSP FEMUR, INIT Qualifiers: Encounter type: initial encounter Fracture type: closed Laterality: left Qualified Code(s): S72.002A - Fracture of unspecified part of neck of left femur, initial encounter for closed fracture (2) Hypertension Code(s): I10 - ESSENTIAL (PRIMARY) HYPERTENSION Qualifiers: Hypertension type: essential hypertension Qualified Code(s): I10 - Essential (primary) hypertension (3) Diabetes Code(s): E11.9 - TYPE 2 DIABETES MELLITUS WITHOUT COMPLICATIONS Qualifiers: Diabetes mellitus type: type 2 Diabetes mellitus halfway insulin use: without halfway use Diabetes mellitus complication status: without complication Qualified Code(s): E11.9 - Type 2 diabetes mellitus without complications (4) Leukocytosis, unspecified Code(s): D72.829 - ELEVATED WHITE BLOOD CELL COUNT, UNSPECIFIED Qualifiers: Leukocytosis type: leukemoid reaction Qualified Code(s): D72.823 - Leukemoid reaction (5) Lipidemia Code(s): E78.5 - HYPERLIPIDEMIA, UNSPECIFIED Qualifiers: Hyperlipidemia type: unspecified Qualified Code(s): E78.5 - Hyperlipidemia, unspecified (6) Chronic GERD Code(s): K21.9 - GASTRO-ESOPHAGEAL REFLUX DISEASE WITHOUT ESOPHAGITIS
[2019-12-18] MEDS: oxyCODONE HCL 5 MG TABLET PO PRN (20:43)
[2019-12-19] MEDS: INSULIN SLIDING SCALE (NOVOLOG) 1 VIAL SQ SCH ×3 (06:21→16:15)
[2019-12-19] MEDS ORDERED: glipiZIDE-XL 2.5 MG TAB.ER.24 PO SCH (07:00)
[2019-12-19] MEDS: FERROUS SO4 325 MG TABLET (FP) PO SCH ×3 (08:14→16:54)
[2019-12-19 08:45] LABS: HEMATOCRIT 40.4 % (32.4-45.2); HEMOGLOBIN 13.7 GM/dL (10.7-15.3); MEAN PLT VOLUME 9.7 fl (7.5-11.1); PLATELET COUNT 270 K/MM3 (134-434); RBC 4.44 M/mm3 (3.60-5.2); RDW 12.5 % (11.6-15.6); WHITE BLOOD COUNT 9.8 K/mm3 (4.0-10.0)
[2019-12-19 09:06] LABS: CALCIUM 8.8 mg/dL (8.5-10.1); CREATININE 0.6 mg/dL (0.55-1.3); POTASSIUM 4.1 mmol/L (3.5-5.1)
[2019-12-19] MEDS ORDERED: PT OWN MED DRAWER 7, Y5N ONE (09:49)
[2019-12-19] MEDS: ENOXAPARIN NA (PORCINE) 30 MG/0.3 ML DISP.SYRIN SQ SCH (09:51)
[2019-12-19] MEDS: DOCUSATE SODIUM 100 MG CAPSULE (FP) PO SCH ×2 (09:51→22:26)
[2019-12-19] MEDS: PANTOPRAZOLE 40 MG TABLET PO SCH (09:51)
[2019-12-19] MEDS: ASCORBIC ACID 500 MG TABLET (FP) PO SCH ×2 (09:51→22:26)
[2019-12-19] MEDS: LISINOPRIL 10 MG TABLET (FP) PO SCH ×2 (09:52→22:26)
[2019-12-19] MEDS: metoPROLOL SUCCINATE 25 MG TAB.SR.24H (FP) PO SCH (09:52)
[2019-12-19] MEDS ORDERED: INSULIN (NOVOLOG) ASPART 100 UNITS/ML 10ML VIAL ONE (11:20)
--- NOTE | 2019-12-19 15:08 | PN ---
Progress Note (short form) - Note Progress Note: 84 yo F POD #3 s/p left hip pinning. Patient is lying comfortably in bed. She states she feels better each day. Last Vital Signs Temp Pulse Resp BP Pulse Ox 98.9 F 86 18 127/72 95 12/19/19 14:33 12/19/19 14:33 12/19/19 14:33 12/19/19 14:33 12/19/19 10:00 PE: LLE Dressing C/D/I Compartments soft Calves soft NT NVID 2+ DP pulses Abnormal Lab Results 12/19/19 07:45 Random Glucose 178 H A: POD #3 s/p left hip pinning P: Pain Control Continue PT tomorrow - TTWB DVT Prophylaxis Okay for discharge to rehab when cleared by medicine and PT, possibly tomorrow
[2019-12-19] MEDS ORDERED: BISACODYL 5 MG TABLET.DR (FP) PO ONE (17:30)
[2019-12-20] MEDS ORDERED: PT OWN MED DRAWER 7, Y5N ONE (06:07)
[2019-12-20] MEDS: INSULIN SLIDING SCALE (NOVOLOG) 1 VIAL SQ SCH ×3 (06:13→16:36)
[2019-12-20] MEDS: GLIMEPIRIDE 4 MG TABLET PO SCH (06:14)
[2019-12-20 08:59] LABS: HEMATOCRIT 38.9 % (32.4-45.2); MCHC 33.4 g/dl (32.0-36.0); MEAN CELL VOLUME 89.9 fl (80-96); MEAN PLT VOLUME 9.4 fl (7.5-11.1); PLATELET COUNT 290 K/MM3 (134-434); RBC 4.33 M/mm3 (3.60-5.2); RDW 12.3 % (11.6-15.6); WHITE BLOOD COUNT 9.3 K/mm3 (4.0-10.0)
[2019-12-20] MEDS: FERROUS SO4 325 MG TABLET (FP) PO SCH ×3 (09:56→16:39)
[2019-12-20] MEDS: PANTOPRAZOLE 40 MG TABLET PO SCH (09:56)
[2019-12-20] MEDS: metoPROLOL SUCCINATE 25 MG TAB.SR.24H (FP) PO SCH (09:56)
[2019-12-20] MEDS: ASCORBIC ACID 500 MG TABLET (FP) PO SCH ×2 (09:57→21:05)
[2019-12-20] MEDS: DOCUSATE SODIUM 100 MG CAPSULE (FP) PO SCH ×2 (09:57→21:05)
[2019-12-20] MEDS: LISINOPRIL 10 MG TABLET (FP) PO SCH ×2 (09:57→21:05)
[2019-12-20] MEDS: ENOXAPARIN NA (PORCINE) 30 MG/0.3 ML DISP.SYRIN SQ SCH (09:57)
--- NOTE | 2019-12-20 11:28 | DS ---
Physical Examination Vital Signs: Vital Signs Temperature 98 F 12/20/19 09:55 Pulse Rate 76 12/20/19 09:55 Respiratory Rate 18 12/20/19 09:55 Blood Pressure 149/55 L 12/20/19 09:55 O2 Sat by Pulse Oximetry (%) 98 12/20/19 09:55 Constitutional: Yes: Well Nourished, No Distress, Calm Eyes: Yes: Conjunctiva Clear HENT: Yes: WNL Neck: Yes: Supple Cardiovascular: Yes: Regular Rate and Rhythm Respiratory: Yes: Regular Gastrointestinal: Yes: Soft Extremities: Yes: Other (Dressing Lt hip) Edema: No Integumentary: Yes: WNL Wound/Incision: Yes: Dressing Dry and Intact Neurological: Yes: WNL, Alert, Oriented ...Motor Strength: WNL Psychiatric: Yes: WNL Labs: CBC, BMP 12/20/19 07:33 12/19/19 07:45 Discharge Summary Problems reviewed: Yes Reason For Visit: FRACTURE OF LEFT FEMUR Current Active Problems Chronic GERD (Acute) Diabetes (Acute) Hip fracture (Acute) Leukocytosis, unspecified (Acute) Lipidemia (Acute) HTN OA knees contusion to Lt elbow, minor Procedures: Principal: Lt ORIF Hospital Course: 84 YO s/p mech fall with resulting Lt HIP Fx; underwent ORIF w/o complications but did have brief knee pains which have resolved. Has DM and BGMs fluctuated. BP was controlled. She ambulated with walker Health Concerns: DM & HTN Plan of Treatment: PT Goals: full ambulation Condition: Improved - Instructions Diet, Activity, Other Instructions: low salt diet; diabetic diet check BGM twice a day PT and OT pain control as needed Referrals: Genaro Ibarra MD [Primary Care Provider] - Disposition: [facility] - Home Medications Comprehensive Discharge Medication List: Ambulatory Orders Glimepiride 4 mg PO DAILY 11/25/13 Metoprolol Succinate [Toprol XL -] 25 mg PO DAILY 11/25/13 Simvastatin 10 mg PO HS 11/25/13 Lisinopril [Prinivil] 20 mg PO DAILY 12/02/13 Pantoprazole Sodium [Protonix -] 40 mg PO BID #14 tablet.ec 11/06/16 Ascorbic Acid [Vitamin C -] 500 mg PO BID tablet 12/19/19 Docusate Sodium [Colace -] 100 mg PO BID capsule 12/19/19 Ferrous Sulfate [Feosol] 325 mg PO DAILY #20 tablet 12/19/19 Oxycodone HCl/Acetaminophen [Oxycodon-Acetaminophen 2.5-300] 1 each PO TID PRN #10 tablet MDD 3 12/19/19 Polyethylene Glycol 3350 [Miralax (For Bowel Prep) -] 17 gm PO DAILY #1 bottle 12/19/19
[2019-12-21] MEDS: GLIMEPIRIDE 4 MG TABLET PO SCH (06:56)
[2019-12-21] MEDS: INSULIN SLIDING SCALE (NOVOLOG) 1 VIAL SQ SCH ×3 (06:56→16:48)
[2019-12-21 08:40] LABS: HEMATOCRIT 39.6 % (32.4-45.2); HEMOGLOBIN 13.2 GM/dL (10.7-15.3); MCH 30.1 pg (25.7-33.7); MCHC 33.4 g/dl (32.0-36.0); MEAN CELL VOLUME 89.9 fl (80-96); MEAN PLT VOLUME 9.1 fl (7.5-11.1); PLATELET COUNT 333 K/MM3 (134-434); RDW 12.6 % (11.6-15.6); WHITE BLOOD COUNT 8.7 K/mm3 (4.0-10.0)
[2019-12-21] MEDS: DOCUSATE SODIUM 100 MG CAPSULE (FP) PO SCH (09:35)
[2019-12-21] MEDS: LISINOPRIL 10 MG TABLET (FP) PO SCH (09:35)
[2019-12-21] MEDS: metoPROLOL SUCCINATE 25 MG TAB.SR.24H (FP) PO SCH (09:35)
[2019-12-21] MEDS: PANTOPRAZOLE 40 MG TABLET PO SCH (09:35)
[2019-12-21] MEDS: FERROUS SO4 325 MG TABLET (FP) PO SCH ×3 (09:35→16:43)
[2019-12-21] MEDS: ENOXAPARIN NA (PORCINE) 30 MG/0.3 ML DISP.SYRIN SQ SCH (09:35)
[2019-12-21] MEDS: ASCORBIC ACID 500 MG TABLET (FP) PO SCH (09:35)
[2019-12-21 14:20] VITALS: BP 131/66; PULSE 61; TEMP 98.9
--- NOTE | 2019-12-21 17:19 | PN ---
Progress Note (short form) - Note Progress Note: >>>>>>>>>>>>> Addendum to D/c summary <<<<<<<<<<<<<<<<<<<<<<<<<<<<< Active Medications Acetaminophen (Tylenol -) 650 mg PO Q4H PRN PRN Reason: FEVER Ascorbic Acid (Vitamin C -) 500 mg PO BID [facility] Last Admin: 12/21/19 09:35 Dose: 500 mg Documented by: Docusate Sodium (Colace -) 100 mg PO BID [facility] Last Admin: 12/21/19 09:35 Dose: 100 mg Documented by: Enoxaparin Sodium (Lovenox -) 30 mg SQ DAILY [facility] Last Admin: 12/21/19 09:35 Dose: 30 mg Documented by: Ferrous Sulfate (Feosol -) 325 mg PO TIDCM [facility] Last Admin: 12/21/19 16:43 Dose: 325 mg Documented by: Glimepiride (Amaryl -) 4 mg PO DAILY@0700 [facility] Last Admin: 12/21/19 06:56 Dose: 4 mg Documented by: Insulin Aspart (Novolog Vial Sliding Scale -) 1 vial SQ TIDAC [facility]; Protocol Last Admin: 12/21/19 16:48 Dose: 3 units Documented by: Lisinopril (Prinivil) 10 mg PO BID [facility] Last Admin: 12/21/19 09:35 Dose: 10 mg Documented by: Metoprolol Succinate (Toprol Xl -) 25 mg PO DAILY [facility] Last Admin: 12/21/19 09:35 Dose: 25 mg Documented by: Morphine Sulfate (Morphine Sulfate) 4 mg IM Q3H PRN PRN Reason: Pain Level 8-10 Ondansetron HCl (Zofran Injection) 4 mg IVPUSH Q6H PRN PRN Reason: NAUSEA AND/OR VOMITING Last Admin: 12/17/19 10:38 Dose: 4 mg Documented by: Oxycodone HCl (Roxicodone -) 5 mg PO Q3H PRN PRN Reason: PAIN LEVEL 1 - 3 Last Admin: 12/18/19 20:43 Dose: 5 mg Documented by: Pantoprazole Sodium (Protonix -) 40 mg PO DAILY [facility] Last Admin: 12/21/19 09:35 Dose: 40 mg Documented by: Promethazine HCl (Phenergan Injection -) 12.5 mg IVPUSH Q6H PRN PRN Reason: NAUSEA-FOR RESCUE AFTER 15 MIN Laboratory Results - last 24 hr 12/21/19 12/21/19 12/21/19 06:53 07:25 11:42 WBC 8.7 RBC 4.40 Hgb 13.2 Hct 39.6 MCV 89.9 MCH 30.1 MCHC 33.4 RDW 12.6 Plt Count 333 MPV 9.1 POC Glucometer 159 278 12/21/19 16:46 WBC RBC Hgb Hct MCV MCH MCHC RDW Plt Count MPV POC Glucometer 277 Vital Signs Temperature 98.9 F 12/21/19 14:19 Pulse Rate 61 12/21/19 14:19 Respiratory Rate 18 12/21/19 14:19 Blood Pressure 131/66 12/21/19 14:19 O2 Sat by Pulse Oximetry (%) 95 12/21/19 14:19 CC: none ~~~~~~~~~~~~~~ skin--NL color; dry dressing (dry blood only); Lt hip eyes--midline heart--RR lungs--grossly clear; resp unlabored ext--no edema; ambulates well with walker neuro--alert; good spirits; lucid `````````````````````````````````` Summ >S/p Lt Hip Fx --with ORIF; no complications; ambulating as expected with asistive device; for ST rehab > Htn--BP better controlled with ESTEVAN > DM--BS fluctuate;being d/c'd on her usual regimen > GERD--stable ~~~~~~~~~~~~~~~~~~~~ Problem List - Problems (1) Hip fracture Code(s): S72.009A - FRACTURE OF UNSP PART OF NECK OF UNSP FEMUR, INIT Qualifiers: Encounter type: initial encounter Fracture type: closed Laterality: left Qualified Code(s): S72.002A - Fracture of unspecified part of neck of left femur, initial encounter for closed fracture (2) Hypertension Code(s): I10 - ESSENTIAL (PRIMARY) HYPERTENSION Qualifiers: Hypertension type: essential hypertension Qualified Code(s): I10 - Essential (primary) hypertension (3) Diabetes Code(s): E11.9 - TYPE 2 DIABETES MELLITUS WITHOUT COMPLICATIONS Qualifiers: Diabetes mellitus type: type 2 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
== END 2019-12-21 18:47 | DRG 482 ==
LOC: JER 10:58 → JERBED 14:00 → J6WEST-2 19:24 → J6S 12-16 13:24
PROVIDERS: ADMIT Internal Medicine Hematology & Oncology; ATTEND Internal Medicine Hematology & Oncology
PROC: 0QS706Z Reposition Left Upper Femur with Intramedullary Internal Fixation Device, Open Approach (ICD-10-PCS; principal; 2019-12-16 11:30)
DX: S72.092A Other fracture of head and neck of left femur, initial encounter for closed fracture (principal); I10 Essential (primary) hypertension; E78.5 Hyperlipidemia, unspecified; E11.9 Type 2 diabetes mellitus without complications; S50.02XA Contusion of left elbow, initial encounter; K21.9 Gastro-esophageal reflux disease without esophagitis; D72.829 Elevated white blood cell count, unspecified; M25.562 Pain in left knee; R11.0 Nausea; M17.0 Bilateral primary osteoarthritis of knee; W01.0XXA Fall on same level from slipping, tripping and stumbling without subsequent striking against object, initial encounter; Y92.89 Other specified places as the place of occurrence of the external cause
CPT/HCPCS: 36415; 71045-TC-FY; 73523-TC-FY; 73552-TC-LT-FY; 73700-TC-RT; 76000-TC-FY; 80048; 80053; 81003; 82962; 83036; 84443; 84550; 85025; 85027; 85610; 85730; 86850; 86870; 86900; 86901; 86902; 87086; 93005; 93010; 94010; 94760; 97116-GP; 97162-GP; 99285-25; J1644; U0003

== ENCOUNTER 2020-06-25 03:34 | Inpatient (IN) | payer OTHER ==
[2020-06-25] MEDS ORDERED: diazePAM 5 MG TABLET PO ONE (04:21)
[2020-06-25] MEDS ORDERED: IBUPROFEN 600 MG TABLET (FP) PO ONE (04:22)
[2020-06-25] MEDS ORDERED: LIDOCAINE 5% TOPICAL PATCH TP ONE (04:22)
[2020-06-25] MEDS ORDERED: morphine CARPU-JECT 2 MG/1 ML DISP.SYRIN IVPUSH ONE (05:28)
[2020-06-25 06:08] LABS: BASO % 0.2 % (0-2.0); EOS % 0.1 % (0-4.5); HEMATOCRIT 47.4 % (32.4-45.2); HEMOGLOBIN 16.1 GM/dL (10.7-15.3); MCH 30.7 pg (25.7-33.7); MCHC 33.9 g/dl (32.0-36.0); MEAN CELL VOLUME 90.4 fl (80-96); MEAN PLT VOLUME 9.5 fl (7.5-11.1); MONO % 4.1 % (3.8-10.2); NEUT % 85.6 % (42.8-82.8); PLATELET COUNT 255 K/MM3 (134-434); RBC 5.24 M/mm3 (3.60-5.2); RDW 12.6 % (11.6-15.6); WHITE BLOOD COUNT 14.6 K/mm3 (4.0-10.0)
[2020-06-25 06:27] LABS: POTASSIUM 4.9 mmol/L (3.5-5.1)
[2020-06-25 06:29] LABS: BLOOD UREA NITROGEN 14.6 mg/dL (7-18); CALCIUM 9.2 mg/dL (8.5-10.1)
[2020-06-25 06:33] LABS: CREATININE 0.9 mg/dL (0.55-1.3)
[2020-06-25 06:34] LABS: BILIRUBIN,TOTAL 0.6 mg/dL (0.2-1)
[2020-06-25 08:17] LABS: INR 1.01 (0.83-1.09); PROTHROMBIN TIME (PATIENT) 12.4 SEC (9.7-13.0)
[2020-06-25 08:20] LABS: ACTIVATED PTT 29.4 SECONDS (25.2-36.5)
[2020-06-25 08:28] LABS: MAGNESIUM 1.9 mg/dL (1.8-2.4)
[2020-06-25 08:31] LABS: PHOSPHOROUS 3.8 mg/dL (2.5-4.9)
[2020-06-25] MEDS ORDERED: ACETAMINOPHEN WITH CODEINE 300MG/30MG TABLET ONE (15:36)
[2020-06-25] MEDS ORDERED: predniSONE 20 MG TABLET (UD) ONE (15:36)
[2020-06-25] MEDS ORDERED: PANTOPRAZOLE 20 MG TABLET PO ONE (15:37)
[2020-06-25] MEDS: PANTOPRAZOLE 20 MG TABLET PO SCH (15:40)
[2020-06-25] MEDS: predniSONE 20 MG TABLET (UD) PO SCH (15:40)
[2020-06-25] MEDS: ACETAMINOPHEN WITH CODEINE 300MG/30MG TABLET PO PRN ×2 (15:40→22:26)
[2020-06-25] MEDS: INSULIN SLIDING SCALE (NOVOLOG) 1 VIAL SQ SCH (17:31)
[2020-06-25 18:41] VITALS: BMI 24.0
[2020-06-25] MEDS: ENOXAPARIN NA (PORCINE) 40 MG/0.4 ML DISP.SYRIN SQ SCH (22:24)
[2020-06-25] MEDS: metoPROLOL SUCCINATE 25 MG TAB.SR.24H (FP) PO SCH (22:24)
[2020-06-25] MEDS: CYCLOBENZAPRINE HCL 10 MG TABLET (FP) PO SCH (22:25)
[2020-06-25] MEDS: LISINOPRIL 20 MG TABLET PO SCH (22:26)
[2020-06-25] MEDS: LIDOCAINE PATCH REMOVAL MC SCH (23:10)
[2020-06-26 01:14] LABS: URINE APPEARANCE CLEAR; URINE BILIRUBIN NEGATIVE (NEGATIVE); URINE COLOR YELLOW; URINE GLUCOSE (UA) TRACE (NEGATIVE); URINE KETONE NEGATIVE (NEGATIVE); URINE LEUK ESTERASE NEGATIVE (NEGATIVE); URINE NITRITE NEGATIVE (NEGATIVE); URINE PROTEIN NEGATIVE (NEGATIVE); URINE UROBILINOGEN 0.2 mg/dL (0.2-1.0)
[2020-06-26] MEDS: ACETAMINOPHEN WITH CODEINE 300MG/30MG TABLET PO PRN ×2 (05:51→21:06)
[2020-06-26] MEDS: INSULIN SLIDING SCALE (NOVOLOG) 1 VIAL SQ SCH ×2 (06:00→17:14)
[2020-06-26 09:56] LABS: BASO % 0.2 % (0-2.0); HEMATOCRIT 48.2 % (32.4-45.2); HEMOGLOBIN 16.4 GM/dL (10.7-15.3); LYMPH % 10.9 % (8-40); MCH 30.8 pg (25.7-33.7); MEAN CELL VOLUME 90.5 fl (80-96); MEAN PLT VOLUME 9.5 fl (7.5-11.1); MONO % 3.7 % (3.8-10.2); NEUT % 85.2 % (42.8-82.8); PLATELET COUNT 379 K/MM3 (134-434); RBC 5.33 M/mm3 (3.60-5.2); RDW 12.8 % (11.6-15.6); WHITE BLOOD COUNT 13.9 K/mm3 (4.0-10.0)
[2020-06-26 10:22] LABS: POTASSIUM 4.3 mmol/L (3.5-5.1)
[2020-06-26 10:25] LABS: BLOOD UREA NITROGEN 27.9 mg/dL (7-18); CALCIUM 10.1 mg/dL (8.5-10.1)
[2020-06-26 10:28] LABS: CREATININE 1.2 mg/dL (0.55-1.3)
[2020-06-26 10:30] LABS: BILIRUBIN,TOTAL 0.9 mg/dL (0.2-1); TOT PROT 7.9 g/dl (6.4-8.2)
[2020-06-26] MEDS: predniSONE 20 MG TABLET (UD) PO SCH (11:39)
[2020-06-26] MEDS: ENOXAPARIN NA (PORCINE) 40 MG/0.4 ML DISP.SYRIN SQ SCH (11:40)
[2020-06-26] MEDS: CYCLOBENZAPRINE HCL 10 MG TABLET (FP) PO SCH ×2 (11:40→21:00)
[2020-06-26] MEDS: amLODIPine BESYLATE 5 MG TABLET (FP) PO SCH (11:41)
[2020-06-26] MEDS: PANTOPRAZOLE 20 MG TABLET PO SCH (11:42)
[2020-06-26] MEDS: LISINOPRIL 20 MG TABLET PO SCH ×2 (11:42→21:01)
[2020-06-26] MEDS: metoPROLOL SUCCINATE 25 MG TAB.SR.24H (FP) PO SCH ×2 (11:42→21:01)
[2020-06-27] MEDS: LIDOCAINE PATCH REMOVAL MC SCH ×2 (00:13→22:06)
[2020-06-27] MEDS ORDERED: PT OWN MED DRAWER 7, Y5N ONE (05:33)
[2020-06-27] MEDS: INSULIN SLIDING SCALE (NOVOLOG) 1 VIAL SQ SCH ×2 (06:06→18:50)
[2020-06-27] MEDS: ACETAMINOPHEN WITH CODEINE 300MG/30MG TABLET PO PRN ×2 (10:49→18:02)
[2020-06-27] MEDS: CYCLOBENZAPRINE HCL 10 MG TABLET (FP) PO SCH ×2 (10:49→22:05)
[2020-06-27] MEDS: predniSONE 20 MG TABLET (UD) PO SCH (11:26)
[2020-06-27] MEDS: ENOXAPARIN NA (PORCINE) 40 MG/0.4 ML DISP.SYRIN SQ SCH (11:27)
[2020-06-27] MEDS: PANTOPRAZOLE 20 MG TABLET PO SCH (11:28)
[2020-06-27] MEDS: LISINOPRIL 20 MG TABLET PO SCH ×2 (11:28→22:06)
[2020-06-27] MEDS: amLODIPine BESYLATE 5 MG TABLET (FP) PO SCH (11:28)
[2020-06-27] MEDS: metoPROLOL SUCCINATE 25 MG TAB.SR.24H (FP) PO SCH ×2 (11:33→22:06)
[2020-06-27] MEDS ORDERED: GABAPENTIN 100 MG CAPSULE PO SCH (12:30)
[2020-06-27] MEDS: LIDOCAINE 5% TOPICAL PATCH TP SCH (13:53)
[2020-06-27] MEDS: GABAPENTIN 100 MG CAPSULE PO SCH (22:05)
[2020-06-28] MEDS: INSULIN SLIDING SCALE (NOVOLOG) 1 VIAL SQ SCH ×2 (06:12→16:52)
[2020-06-28] MEDS: GABAPENTIN 100 MG CAPSULE PO SCH ×3 (06:12→21:08)
[2020-06-28] MEDS: metoPROLOL SUCCINATE 25 MG TAB.SR.24H (FP) PO SCH ×2 (09:53→21:07)
[2020-06-28] MEDS: LIDOCAINE 5% TOPICAL PATCH TP SCH (09:54)
[2020-06-28] MEDS: predniSONE 10 MG TABLET (UD) PO SCH (09:55)
[2020-06-28] MEDS: amLODIPine BESYLATE 5 MG TABLET (FP) PO SCH (09:56)
[2020-06-28] MEDS: CYCLOBENZAPRINE HCL 10 MG TABLET (FP) PO SCH ×2 (09:56→21:09)
[2020-06-28] MEDS: PANTOPRAZOLE 20 MG TABLET PO SCH (09:57)
[2020-06-28] MEDS: LISINOPRIL 20 MG TABLET PO SCH ×2 (09:57→21:08)
[2020-06-28] MEDS: ACETAMINOPHEN 325 MG TABLET (FP) PO PRN (09:59)
[2020-06-28] MEDS: LIDOCAINE PATCH REMOVAL MC SCH (21:15)
[2020-06-29] MEDS: LIDOCAINE PATCH REMOVAL MC SCH ×2 (00:14→21:19)
[2020-06-29] MEDS: GABAPENTIN 100 MG CAPSULE PO SCH ×3 (05:28→21:17)
[2020-06-29] MEDS: INSULIN SLIDING SCALE (NOVOLOG) 1 VIAL SQ SCH ×2 (06:05→17:50)
[2020-06-29] MEDS ORDERED: LIDOCAINE 1%/EPI 1:100000 (50 ML MULTI DOSE VIAL) ONE (07:10)
[2020-06-29] MEDS ORDERED: TOBRAMYCIN/DEXAMETHASONE OPHTH. OINTMENT 1 TUBE ONE (07:10)
[2020-06-29] MEDS ORDERED: TRIAMCINOLONE ACET 40MG/1ML VIAL ONE (07:16)
[2020-06-29] MEDS ORDERED: DEXAMETHASONE SOD PHOSPHATE/PF 10 MG/ML SDV ONE (07:17)
[2020-06-29] MEDS ORDERED: LIDOCAINE HCL/PF 1% SDV 5ML VIAL ONE (07:17)
[2020-06-29] MEDS ORDERED: BUPIVACAINE HCL/PF 0.75% 10 ML VIAL ONE (07:17)
[2020-06-29] MEDS ORDERED: SODIUM CHLORIDE 0.9% P/F 10 ML VIAL IJ ONE (07:22)
[2020-06-29] MEDS ORDERED: PT OWN MED DRAWER 7, Y5N ONE (09:43)
[2020-06-29] MEDS: ACETAMINOPHEN WITH CODEINE 300MG/30MG TABLET PO PRN (10:08)
[2020-06-29] MEDS: predniSONE 10 MG TABLET (UD) PO SCH (10:09)
[2020-06-29] MEDS: PANTOPRAZOLE 20 MG TABLET PO SCH (10:09)
[2020-06-29] MEDS: metoPROLOL SUCCINATE 25 MG TAB.SR.24H (FP) PO SCH ×2 (10:10→17:49)
[2020-06-29] MEDS: LISINOPRIL 20 MG TABLET PO SCH ×2 (10:10→17:49)
[2020-06-29] MEDS: CYCLOBENZAPRINE HCL 10 MG TABLET (FP) PO SCH ×2 (10:11→21:17)
[2020-06-29] MEDS: amLODIPine BESYLATE 5 MG TABLET (FP) PO SCH (10:11)
[2020-06-29] MEDS: LIDOCAINE 5% TOPICAL PATCH TP SCH (10:12)
[2020-06-29] MEDS ORDERED: SODIUM PHOSPHATE/NA BIPHOS 133 ML ENEMA PR ONE (14:13)
[2020-06-29] MEDS: POLYETHYLENE GLYCOL 3350 119 GM BTL PO SCH (16:01)
[2020-06-29] MEDS ORDERED: INSULIN (NOVOLOG) ASPART 100 UNITS/ML 10ML VIAL ONE (16:46)
[2020-06-30] MEDS: LISINOPRIL 20 MG TABLET PO SCH ×2 (05:38→18:38)
[2020-06-30] MEDS: ACETAMINOPHEN WITH CODEINE 300MG/30MG TABLET PO PRN ×3 (05:38→21:32)
[2020-06-30] MEDS: metoPROLOL SUCCINATE 25 MG TAB.SR.24H (FP) PO SCH ×2 (05:38→18:38)
[2020-06-30] MEDS: GABAPENTIN 100 MG CAPSULE PO SCH ×3 (05:39→21:33)
[2020-06-30] MEDS: INSULIN SLIDING SCALE (NOVOLOG) 1 VIAL SQ SCH ×2 (06:28→16:49)
[2020-06-30] MEDS: PANTOPRAZOLE 20 MG TABLET PO SCH (09:55)
[2020-06-30] MEDS: predniSONE 20 MG TABLET (UD) PO SCH (09:55)
[2020-06-30] MEDS: LIDOCAINE 5% TOPICAL PATCH TP SCH (09:55)
[2020-06-30] MEDS: amLODIPine BESYLATE 5 MG TABLET (FP) PO SCH (09:55)
[2020-06-30] MEDS: CYCLOBENZAPRINE HCL 10 MG TABLET (FP) PO SCH ×2 (09:56→21:33)
[2020-06-30] MEDS: POLYETHYLENE GLYCOL 3350 119 GM BTL PO SCH (09:56)
[2020-06-30] MEDS ORDERED: IOHEXOL 180 MG/1 ML ML IJ ONE (11:29)
[2020-06-30] MEDS ORDERED: BUPIVACAINE HCL/PF 0.5% (5 MG/ML) 30 ML VIAL IJ ONE (11:30)
[2020-06-30] MEDS: LIDOCAINE PATCH REMOVAL MC SCH (21:33)
[2020-07-01] MEDS: GABAPENTIN 100 MG CAPSULE PO SCH ×3 (05:34→21:14)
[2020-07-01] MEDS: LISINOPRIL 20 MG TABLET PO SCH ×2 (05:34→17:31)
[2020-07-01] MEDS: metoPROLOL SUCCINATE 25 MG TAB.SR.24H (FP) PO SCH ×2 (05:34→17:31)
[2020-07-01] MEDS: ACETAMINOPHEN WITH CODEINE 300MG/30MG TABLET PO PRN (05:37)
[2020-07-01] MEDS: INSULIN SLIDING SCALE (NOVOLOG) 1 VIAL SQ SCH ×2 (06:31→18:42)
[2020-07-01] MEDS: predniSONE 20 MG TABLET (UD) PO SCH (10:45)
[2020-07-01] MEDS: LIDOCAINE 5% TOPICAL PATCH TP SCH (10:45)
[2020-07-01] MEDS: PANTOPRAZOLE 20 MG TABLET PO SCH (10:45)
[2020-07-01] MEDS: CYCLOBENZAPRINE HCL 10 MG TABLET (FP) PO SCH ×2 (10:45→21:15)
[2020-07-01] MEDS: amLODIPine BESYLATE 5 MG TABLET (FP) PO SCH (10:46)
[2020-07-01] MEDS: POLYETHYLENE GLYCOL 3350 119 GM BTL PO SCH (10:46)
[2020-07-01] MEDS ORDERED: INSULIN (NOVOLOG) ASPART 100 UNITS/ML 10ML VIAL SQ ONE ×2 (18:25→21:32)
[2020-07-01] MEDS ORDERED: predniSONE 10 MG TABLET (UD) PO SCH (19:26)
[2020-07-01] MEDS: LIDOCAINE PATCH REMOVAL MC SCH (22:48)
[2020-07-02] MEDS: GABAPENTIN 100 MG CAPSULE PO SCH ×3 (05:30→21:24)
[2020-07-02] MEDS: metoPROLOL SUCCINATE 25 MG TAB.SR.24H (FP) PO SCH ×3 (05:30→18:08)
[2020-07-02] MEDS: LISINOPRIL 20 MG TABLET PO SCH ×2 (05:30→18:08)
[2020-07-02] MEDS: INSULIN SLIDING SCALE (NOVOLOG) 1 VIAL SQ SCH ×2 (06:25→16:50)
[2020-07-02] MEDS: ENOXAPARIN NA (PORCINE) 40 MG/0.4 ML DISP.SYRIN SQ SCH (09:26)
[2020-07-02] MEDS: POLYETHYLENE GLYCOL 3350 119 GM BTL PO SCH (09:27)
[2020-07-02] MEDS: CYCLOBENZAPRINE HCL 10 MG TABLET (FP) PO SCH ×2 (09:27→21:24)
[2020-07-02] MEDS: LIDOCAINE 5% TOPICAL PATCH TP SCH (09:27)
[2020-07-02] MEDS: amLODIPine BESYLATE 5 MG TABLET (FP) PO SCH (09:28)
[2020-07-02] MEDS: PANTOPRAZOLE 20 MG TABLET PO SCH (09:28)
[2020-07-02] MEDS ORDERED: GLIMEPIRIDE 1 MG TABLET PO SCH (11:45)
[2020-07-02] MEDS ORDERED: PT OWN MED DRAWER 7, Y5N ONE (12:36)
[2020-07-02] MEDS: GLIMEPIRIDE 1 MG TABLET PO SCH ×2 (12:55→16:43)
[2020-07-02] MEDS: ACETAMINOPHEN WITH CODEINE 300MG/30MG TABLET PO PRN (18:56)
[2020-07-02] MEDS: LIDOCAINE PATCH REMOVAL MC SCH (22:02)
[2020-07-03] MEDS: ACETAMINOPHEN WITH CODEINE 300MG/30MG TABLET PO PRN ×2 (04:02→17:03)
[2020-07-03] MEDS: LISINOPRIL 20 MG TABLET PO SCH ×2 (05:37→17:34)
[2020-07-03] MEDS: GABAPENTIN 100 MG CAPSULE PO SCH ×3 (05:37→21:20)
[2020-07-03] MEDS: metoPROLOL SUCCINATE 25 MG TAB.SR.24H (FP) PO SCH ×2 (05:37→17:34)
[2020-07-03] MEDS ORDERED: PT OWN MED DRAWER 7, Y5N ONE ×4 (06:02→16:53)
[2020-07-03] MEDS: INSULIN SLIDING SCALE (NOVOLOG) 1 VIAL SQ SCH ×2 (06:04→17:03)
[2020-07-03] MEDS ORDERED: GLIMEPIRIDE 4 MG TABLET PO SCH (06:08)
[2020-07-03] MEDS: PANTOPRAZOLE 20 MG TABLET PO SCH (09:04)
[2020-07-03] MEDS: ACETAMINOPHEN 325 MG TABLET (FP) PO PRN (09:05)
[2020-07-03] MEDS: ENOXAPARIN NA (PORCINE) 40 MG/0.4 ML DISP.SYRIN SQ SCH (09:06)
[2020-07-03] MEDS: amLODIPine BESYLATE 5 MG TABLET (FP) PO SCH (09:06)
[2020-07-03] MEDS: LIDOCAINE 5% TOPICAL PATCH TP SCH (09:07)
[2020-07-03] MEDS: CYCLOBENZAPRINE HCL 10 MG TABLET (FP) PO SCH ×2 (09:07→21:21)
[2020-07-03] MEDS: POLYETHYLENE GLYCOL 3350 119 GM BTL PO SCH (09:29)
[2020-07-03] MEDS ORDERED: SODIUM PHOSPHATE/NA BIPHOS 133 ML ENEMA RC ONE (16:00)
[2020-07-03] MEDS: GLIMEPIRIDE 1 MG TABLET PO SCH (17:04)
[2020-07-03] MEDS: LIDOCAINE PATCH REMOVAL MC SCH (21:23)
[2020-07-04] MEDS: ACETAMINOPHEN WITH CODEINE 300MG/30MG TABLET PO PRN ×2 (03:54→19:36)
[2020-07-04] MEDS ORDERED: PT OWN MED DRAWER 7, Y5N ONE ×3 (06:48→16:05)
[2020-07-04] MEDS: metoPROLOL SUCCINATE 25 MG TAB.SR.24H (FP) PO SCH ×2 (06:52→17:49)
[2020-07-04] MEDS: GLIMEPIRIDE 1 MG TABLET PO SCH ×2 (06:52→16:14)
[2020-07-04] MEDS: LISINOPRIL 20 MG TABLET PO SCH ×2 (06:52→17:49)
[2020-07-04] MEDS: GABAPENTIN 100 MG CAPSULE PO SCH ×3 (06:52→21:22)
[2020-07-04] MEDS: INSULIN SLIDING SCALE (NOVOLOG) 1 VIAL SQ SCH ×2 (06:54→16:39)
[2020-07-04 09:06] LABS: HEMOGLOBIN 14.8 GM/dL (10.7-15.3); MCH 30.4 pg (25.7-33.7); MEAN PLT VOLUME 9.7 fl (7.5-11.1); PLATELET COUNT 307 K/MM3 (134-434); RBC 4.89 M/mm3 (3.60-5.2); RDW 13.2 % (11.6-15.6)
[2020-07-04] MEDS: LIDOCAINE 5% TOPICAL PATCH TP SCH (09:08)
[2020-07-04] MEDS: CYCLOBENZAPRINE HCL 10 MG TABLET (FP) PO SCH ×2 (09:08→21:22)
[2020-07-04] MEDS: PANTOPRAZOLE 20 MG TABLET PO SCH (09:09)
[2020-07-04] MEDS: amLODIPine BESYLATE 5 MG TABLET (FP) PO SCH (09:09)
[2020-07-04] MEDS: ENOXAPARIN NA (PORCINE) 40 MG/0.4 ML DISP.SYRIN SQ SCH (09:10)
[2020-07-04] MEDS: POLYETHYLENE GLYCOL 3350 119 GM BTL PO SCH (09:10)
[2020-07-04 09:24] LABS: POTASSIUM 4.7 mmol/L (3.5-5.1)
[2020-07-04 09:31] LABS: CALCIUM 9.5 mg/dL (8.5-10.1)
[2020-07-04 09:32] LABS: ALBUMIN 3.2 g/dl (3.4-5.0); BLOOD UREA NITROGEN 19.4 mg/dL (7-18)
[2020-07-04 09:35] LABS: CREATININE 0.7 mg/dL (0.55-1.3)
[2020-07-04 09:36] LABS: BILIRUBIN,TOTAL 0.4 mg/dL (0.2-1); TOT PROT 6.4 g/dl (6.4-8.2)
[2020-07-04 21:22] VITALS: BP 112/70; PULSE 87; TEMP 98.8
[2020-07-04] MEDS: LIDOCAINE PATCH REMOVAL MC SCH (21:24)
== END 2020-07-04 21:57 | DRG 552 ==
LOC: JER 03:34 → JERBED 05:38 → J5S 17:14
PROVIDERS: ADMIT Internal Medicine; ATTEND Internal Medicine
PROC: 3E0U3BZ Introduction of Anesthetic Agent into Joints, Percutaneous Approach (ICD-10-PCS; 2020-06-30)
PROC: 3E0U33Z Introduction of Anti-inflammatory into Joints, Percutaneous Approach (ICD-10-PCS; principal; 2020-06-30 11:00)
DX: M48.061 Spinal stenosis, lumbar region without neurogenic claudication (principal); M54.16 Radiculopathy, lumbar region; E11.9 Type 2 diabetes mellitus without complications; I10 Essential (primary) hypertension; K80.20 Calculus of gallbladder without cholecystitis without obstruction
CPT/HCPCS: 36415; 71045-TC-FY; 72100-TC-FY; 72131-TC; 72146-TC; 72148-TC; 72202-TC-FY; 73502-TC-LT-FY; 73502-TC-RT-FY; 73562-TC-RT-FY; 76000-TC-FY; 80053; 81003; 82962; 83735; 84100; 84443; 85025; 85027; 85610; 85730; 86850; 86870; 86900; 86901; 86902; 87804; 93005; 93010; 97116-GP; 97162-GP; 99285-25; C9803; U0003

== ENCOUNTER 2022-11-15 23:21 | Inpatient (IN) | payer OTHER ==
[2022-11-16] MEDS ORDERED: ACETAMINOPHEN 1000 MG/100 ML BAG IVPB ONE (00:14)
[2022-11-16] MEDS ORDERED: ACETAMINOPHEN INJECTION 100 ML IVPB ONE (00:28)
[2022-11-16 01:11] LABS: BASO % 0.4 % (0-2.0); EOS % 0.2 % (0-4.5); HEMATOCRIT 42.4 % (32.4-45.2); HEMOGLOBIN 14.2 GM/dL (10.7-15.3); LYMPH % 13.2 % (8-40); MCH 29.2 pg (25.7-33.7); MCHC 33.4 g/dl (32.0-36.0); MEAN CELL VOLUME 87.5 fl (80-96); MEAN PLT VOLUME 8.8 fl (7.5-11.1); MONO % 4.4 % (3.8-10.2); NEUT % 81.8 % (42.8-82.8); PLATELET COUNT 305 10^3/uL (134-434); RBC 4.85 M/mm3 (3.60-5.2); RDW 13.7 % (11.6-15.6); WHITE BLOOD COUNT 12.5 K/mm3 (4.0-10.0)
[2022-11-16 01:34] LABS: POTASSIUM 4.6 mmol/L (3.5-5.1)
[2022-11-16 01:36] LABS: CALCIUM 9.3 mg/dL (8.5-10.1)
[2022-11-16 01:37] LABS: ALBUMIN 4.3 g/dl (3.4-5.0); BLOOD UREA NITROGEN 14.2 mg/dL (7-18)
[2022-11-16 01:40] LABS: CREATININE 0.8 mg/dL (0.55-1.3)
[2022-11-16 01:42] LABS: BILIRUBIN,TOTAL 0.2 mg/dL (0.2-1); TOT PROT 8.1 g/dl (6.4-8.2)
[2022-11-16] MEDS ORDERED: morphine CARPU-JECT 2 MG/1 ML DISP.SYRIN IVPUSH ONE (01:53)
[2022-11-16] MEDS ORDERED: ONDANSETRON 4 MG/2 ML VIAL IVPUSH ONE (02:09)
[2022-11-16] MEDS ORDERED: ONDANSETRON 4 MG/2 ML VIAL ONE (02:09)
[2022-11-16 04:30] LABS: POTASSIUM 4.3 mmol/L (3.5-5.1)
[2022-11-16 04:31] LABS: CALCIUM 9.4 mg/dL (8.5-10.1)
[2022-11-16 04:32] LABS: BLOOD UREA NITROGEN 13.4 mg/dL (7-18)
[2022-11-16 04:35] LABS: CREATININE 0.8 mg/dL (0.55-1.3)
[2022-11-16 04:36] LABS: INR 0.95 (0.83-1.09)
[2022-11-16 04:39] LABS: ACTIVATED PTT 29.6 SECONDS (25.2-36.5)
[2022-11-16 06:40] LABS: PH,URINE 7.5 (5.0-8.0); URINE APPEARANCE CLEAR; URINE BILIRUBIN NEGATIVE (NEGATIVE); URINE COLOR YELLOW; URINE GLUCOSE (UA) TRACE (NEGATIVE); URINE KETONE NEGATIVE (NEGATIVE); URINE LEUK ESTERASE NEGATIVE (NEGATIVE); URINE NITRITE NEGATIVE (NEGATIVE); URINE PROTEIN NEGATIVE (NEGATIVE); URINE UROBILINOGEN 0.2 mg/dL (0.2-1.0)
[2022-11-16 07:55] VITALS: BMI 25.9
[2022-11-16] MEDS: DEXTROSE 5%-0.45% SALINE 1,000 ML IV SCH (08:43)
[2022-11-16 09:30] LABS: BASO % 0.2 % (0-2.0); HEMATOCRIT 42.1 % (32.4-45.2); HEMOGLOBIN 13.5 GM/dL (10.7-15.3); MCH 28.9 pg (25.7-33.7); MCHC 32.1 g/dl (32.0-36.0); MEAN PLT VOLUME 9.3 fl (7.5-11.1); MONO % 3.7 % (3.8-10.2); NEUT % 88.1 % (42.8-82.8); PLATELET COUNT 305 10^3/uL (134-434); RBC 4.68 M/mm3 (3.60-5.2); RDW 13.2 % (11.6-15.6)
[2022-11-16 09:48] LABS: POTASSIUM 4.7 mmol/L (3.5-5.1)
[2022-11-16 09:49] LABS: CALCIUM 9.2 mg/dL (8.5-10.1)
[2022-11-16 09:50] LABS: BLOOD UREA NITROGEN 12.8 mg/dL (7-18)
[2022-11-16 09:53] LABS: CREATININE 0.8 mg/dL (0.55-1.3)
[2022-11-16] MEDS ORDERED: LISINOPRIL 20 MG TABLET PO SCH (10:00)
[2022-11-16] MEDS: amLODIPine BESYLATE 5 MG TABLET (FP) PO SCH (10:39)
[2022-11-16] MEDS: VALSARTAN 160 MG TABLET PO SCH (10:39)
[2022-11-16] MEDS: SERTRALINE HCL 50 MG TABLET (FP) PO SCH (10:39)
[2022-11-16] MEDS: ACETAMINOPHEN 1000 MG/100 ML BAG IVPB PRN ×2 (11:34→19:57)
[2022-11-16] MEDS ORDERED: ATORVASTATIN CA 10 MG TABLET (FP) PO SCH (22:00)
[2022-11-17] MEDS: DEXTROSE 5%-0.45% SALINE 1,000 ML IV SCH (07:45)
[2022-11-17] MEDS ORDERED: BUPIVACAINE HCL/PF 0.5% (5MG/ML) 10 ML VIAL ONE (08:25)
[2022-11-17] MEDS ORDERED: PROPOFOL 60 ML ONE (08:26)
[2022-11-17] MEDS ORDERED: ceFAZolin SODIUM 1 GM VIAL IVPB ONE (09:00)
[2022-11-17] MEDS ORDERED: ceFAZolin SODIUM 1 GM VIAL ONE (09:05)
[2022-11-17] MEDS ORDERED: TRANEXAMIC ACID 1000 MG/10 ML VIAL ONE (09:11)
[2022-11-17] MEDS ORDERED: KETOROLAC TROMETHAMINE 30 MG/1 ML VIAL ONE (10:48)
[2022-11-17] MEDS ORDERED: DEXAMETHASONE SOD PHOSPHATE 4 MG/1 ML VIAL ONE (10:48)
[2022-11-17] MEDS ORDERED: ONDANSETRON 4 MG/2 ML VIAL ONE (10:48)
[2022-11-17] MEDS ORDERED: DEXTROSE 5%-0.45% SALINE 1,000 ML IV SCH (11:18)
[2022-11-17] MEDS: LACTATED RINGERS SOLUTION 1,000 ML IV SCH (11:28)
[2022-11-17] MEDS ORDERED: ACETAMINOPHEN 325 MG TABLET (FP) PO PRN (11:30)
[2022-11-17] MEDS ORDERED: ACETAMINOPHEN 1000 MG/100 ML BAG IVPB ONE (11:32)
[2022-11-17] MEDS ORDERED: ONDANSETRON 4 MG/2 ML VIAL IVPUSH PRN (11:32)
[2022-11-17] MEDS ORDERED: PROMETHAZINE HCL 25 MG/1 ML VIAL IVPB PRN (11:32)
[2022-11-17] MEDS ORDERED: ACETAMINOPHEN INJECTION 100 ML IVPB ONE (11:55)
[2022-11-17] MEDS: oxyCODONE HCL 5 MG TABLET PO PRN ×2 (16:02→21:03)
[2022-11-17] MEDS: CEFAZOLIN 1 GM in DEXTROSE 5%-WATER - 50 ML IVPB SCH (18:23)
[2022-11-17] MEDS: ATORVASTATIN CA 10 MG TABLET (FP) PO SCH (21:04)
[2022-11-18] MEDS: CEFAZOLIN 1 GM in DEXTROSE 5%-WATER - 50 ML IVPB SCH ×2 (01:24→10:20)
[2022-11-18] MEDS: SERTRALINE HCL 50 MG TABLET (FP) PO SCH ×2 (08:06→10:21)
[2022-11-18] MEDS: VALSARTAN 160 MG TABLET PO SCH ×2 (08:06→10:21)
[2022-11-18] MEDS: amLODIPine BESYLATE 5 MG TABLET (FP) PO SCH ×2 (08:06→10:21)
[2022-11-18] MEDS: oxyCODONE HCL 5 MG TABLET PO PRN (10:09)
[2022-11-18] MEDS: ENOXAPARIN NA (PORCINE) 40 MG/0.4 ML DISP.SYRIN SQ SCH (10:21)
[2022-11-18 10:35] LABS: BASO % 0.2 % (0-2.0); EOS % 0.4 % (0-4.5); HEMATOCRIT 36.9 % (32.4-45.2); HEMOGLOBIN 12.2 GM/dL (10.7-15.3); LYMPH % 14.1 % (8-40); MCH 29.8 pg (25.7-33.7); MCHC 32.9 g/dl (32.0-36.0); MEAN CELL VOLUME 90.4 fl (80-96); MEAN PLT VOLUME 9.3 fl (7.5-11.1); MONO % 6.3 % (3.8-10.2); PLATELET COUNT 214 10^3/uL (134-434); RBC 4.08 M/mm3 (3.60-5.2); RDW 13.5 % (11.6-15.6)
[2022-11-18 11:10] LABS: POTASSIUM 4.2 mmol/L (3.5-5.1)
[2022-11-18 11:24] LABS: BLOOD UREA NITROGEN 15.6 mg/dL (7-18)
[2022-11-18 11:31] LABS: CREATININE 0.8 mg/dL (0.55-1.3)
[2022-11-18] MEDS: LACTATED RINGERS SOLUTION 1,000 ML IV SCH (14:27)
[2022-11-18] MEDS: ATORVASTATIN CA 10 MG TABLET (FP) PO SCH (21:33)
[2022-11-19] MEDS: SERTRALINE HCL 50 MG TABLET (FP) PO SCH (10:13)
[2022-11-19] MEDS: VALSARTAN 160 MG TABLET PO SCH (10:13)
[2022-11-19] MEDS: amLODIPine BESYLATE 5 MG TABLET (FP) PO SCH (10:13)
[2022-11-19] MEDS: ACETAMINOPHEN 325 MG TABLET (FP) PO PRN (10:13)
[2022-11-19] MEDS: oxyCODONE HCL 5 MG TABLET PO PRN (10:14)
[2022-11-19] MEDS: ENOXAPARIN NA (PORCINE) 40 MG/0.4 ML DISP.SYRIN SQ SCH (10:21)
[2022-11-19] MEDS: LACTATED RINGERS SOLUTION 1,000 ML IV SCH ×2 (12:22→19:16)
[2022-11-19] MEDS: ATORVASTATIN CA 10 MG TABLET (FP) PO SCH (21:40)
[2022-11-20] MEDS: ACETAMINOPHEN 325 MG TABLET (FP) PO PRN ×2 (05:42→13:40)
[2022-11-20 06:33] VITALS: RESP 18
[2022-11-20 09:13] VITALS: BP 112/51; PULSE 77; TEMP 97.9
[2022-11-20] MEDS: amLODIPine BESYLATE 5 MG TABLET (FP) PO SCH ×2 (09:39→11:55)
[2022-11-20] MEDS: VALSARTAN 160 MG TABLET PO SCH ×2 (09:39→11:55)
[2022-11-20] MEDS: ENOXAPARIN NA (PORCINE) 40 MG/0.4 ML DISP.SYRIN SQ SCH (09:39)
[2022-11-20] MEDS: SERTRALINE HCL 50 MG TABLET (FP) PO SCH (09:39)
== END 2022-11-20 14:07 | DRG 522 ==
LOC: JER 23:21 → JERBED 11-16 03:28 → J5S 11-16 06:59
PROVIDERS: ADMIT Internal Medicine; ATTEND Internal Medicine
PROC: 0SRR0J9 Replacement of Right Hip Joint, Femoral Surface with Synthetic Substitute, Cemented, Open Approach (ICD-10-PCS; principal; 2022-11-17 08:00)
DX: S72.001A Fracture of unspecified part of neck of right femur, initial encounter for closed fracture (principal); I10 Essential (primary) hypertension; E11.9 Type 2 diabetes mellitus without complications; M48.00 Spinal stenosis, site unspecified; E78.00 Pure hypercholesterolemia, unspecified; K21.9 Gastro-esophageal reflux disease without esophagitis; W17.89XA Other fall from one level to another, initial encounter; Y92.098 Other place in other non-institutional residence as the place of occurrence of the external cause; D72.829 Elevated white blood cell count, unspecified; Z79.84 Long term (current) use of oral hypoglycemic drugs
CPT/HCPCS: 36415; 70450-TC; 71045-TC-FY; 72125-TC; 72170-TC-FY; 73502-TC-RT-FY; 73552-TC-RT-FY; 73700-TC-RT; 80048; 80053; 81003; 82962; 85025; 85610; 85730; 86850; 86870; 86900; 86901; 86902; 87040; 87086; 88305-TC; 88311-TC; 93005; 93010; 94760; 97116-GP; 97162-GP; 99285-25; C1776; C1889

== ENCOUNTER 2022-11-24 15:49 | Inpatient (IN) | payer OTHER ==
[2022-11-24] MEDS ORDERED: ACETAMINOPHEN 1000 MG/100 ML BAG IVPB ONE (16:33)
[2022-11-24] MEDS ORDERED: ACETAMINOPHEN INJECTION 100 ML IVPB ONE ×2 (17:16→23:58)
[2022-11-24 17:30] LABS: BASO % 0.5 % (0-2.0); EOS % 3.5 % (0-4.5); HEMATOCRIT 34.5 % (32.4-45.2); HEMOGLOBIN 11.5 GM/dL (10.7-15.3); LYMPH % 19.3 % (8-40); MCH 29.3 pg (25.7-33.7); MCHC 33.5 g/dl (32.0-36.0); MEAN CELL VOLUME 87.4 fl (80-96); MEAN PLT VOLUME 8.3 fl (7.5-11.1); MONO % 7.4 % (3.8-10.2); NEUT % 69.3 % (42.8-82.8); PLATELET COUNT 304 10^3/uL (134-434); RBC 3.95 M/mm3 (3.60-5.2); RDW 13.1 % (11.6-15.6); WHITE BLOOD COUNT 7.8 K/mm3 (4.0-10.0)
[2022-11-24 17:41] LABS: INR 1.08 (0.83-1.09); PROTHROMBIN TIME (PATIENT) 12.5 SEC (9.7-13.0)
[2022-11-24 17:43] LABS: ACTIVATED PTT 31.1 SECONDS (25.2-36.5)
[2022-11-24 17:45] LABS: BLOOD UREA NITROGEN 20.7 mg/dL (7-18); CALCIUM 8.5 mg/dL (8.5-10.1)
[2022-11-24 17:49] LABS: BILIRUBIN,TOTAL 0.3 mg/dL (0.2-1); CREATININE 0.7 mg/dL (0.55-1.3)
[2022-11-24 18:01] LABS: ALBUMIN 2.7 g/dl (3.4-5.0)
[2022-11-25] MEDS: ACETAMINOPHEN 1000 MG/100 ML BAG IVPB PRN ×2 (00:10→22:12)
[2022-11-25] MEDS ORDERED: MELATONIN 5 MG TABLETS PO ONE (02:33)
[2022-11-25] MEDS ORDERED: AZITHROMYCIN 250 MG TABLET PO ONE ×2 (05:38→10:00)
[2022-11-25 06:46] LABS: BASO % 0.3 % (0-2.0); HEMATOCRIT 33.7 % (32.4-45.2); HEMOGLOBIN 11.2 GM/dL (10.7-15.3); LYMPH % 15.1 % (8-40); MCH 29.6 pg (25.7-33.7); MCHC 33.3 g/dl (32.0-36.0); MEAN CELL VOLUME 89.1 fl (80-96); MEAN PLT VOLUME 8.4 fl (7.5-11.1); MONO % 8.5 % (3.8-10.2); NEUT % 73.1 % (42.8-82.8); PLATELET COUNT 312 10^3/uL (134-434); RBC 3.78 M/mm3 (3.60-5.2); RDW 12.9 % (11.6-15.6); WHITE BLOOD COUNT 7.3 K/mm3 (4.0-10.0)
[2022-11-25 07:04] LABS: POTASSIUM 4.3 mmol/L (3.5-5.1)
[2022-11-25 07:07] LABS: BLOOD UREA NITROGEN 16.2 mg/dL (7-18); CALCIUM 8.8 mg/dL (8.5-10.1); MAGNESIUM 1.9 mg/dL (1.8-2.4)
[2022-11-25 07:11] LABS: CREATININE 0.6 mg/dL (0.55-1.3); PHOSPHOROUS 3.5 mg/dL (2.5-4.9)
[2022-11-25] MEDS ORDERED: amLODIPine BESYLATE 5 MG TABLET (FP) ONE (13:15)
[2022-11-25] MEDS ORDERED: CYCLOBENZAPRINE HCL 10 MG TABLET (FP) ONE (13:15)
[2022-11-25] MEDS ORDERED: POLYETHYLENE GLYCOL (HEALTHYLAX) 3350 17 GM PACKET ONE (13:15)
[2022-11-25] MEDS ORDERED: AZITHROMYCIN 250 MG TABLET ONE (13:15)
[2022-11-25] MEDS ORDERED: VALSARTAN 80 MG TABLET ONE (13:16)
[2022-11-25] MEDS ORDERED: LIDOCAINE 5% TOPICAL PATCH ONE (13:16)
[2022-11-25] MEDS ORDERED: ENOXAPARIN NA (PORCINE) 40 MG/0.4 ML DISP.SYRIN SQ ONE (13:16)
[2022-11-25] MEDS ORDERED: SERTRALINE HCL 50 MG TABLET (FP) ONE (13:17)
[2022-11-25] MEDS ORDERED: metoPROLOL SUCCINATE 25 MG TAB.SR.24H (FP) PO ONE (13:18)
[2022-11-25] MEDS: VALSARTAN 160 MG TABLET PO SCH (13:31)
[2022-11-25] MEDS: LIDOCAINE 5% TOPICAL PATCH TP SCH (13:31)
[2022-11-25] MEDS: CYCLOBENZAPRINE HCL 10 MG TABLET (FP) PO SCH ×2 (13:31→22:10)
[2022-11-25] MEDS: POLYETHYLENE GLYCOL (HEALTHYLAX) 3350 17 GM PACKET PO SCH (13:31)
[2022-11-25] MEDS: metoPROLOL SUCCINATE 25 MG TAB.SR.24H (FP) PO SCH ×2 (13:32→22:10)
[2022-11-25] MEDS: amLODIPine BESYLATE 5 MG TABLET (FP) PO SCH (13:32)
[2022-11-25] MEDS: ENOXAPARIN NA (PORCINE) 40 MG/0.4 ML DISP.SYRIN SQ SCH (13:32)
[2022-11-25] MEDS: SERTRALINE HCL 50 MG TABLET (FP) PO SCH (13:32)
[2022-11-25] MEDS: INSULIN SLIDING SCALE (NOVOLOG) 1 VIAL SQ SCH ×3 (15:32→22:12)
[2022-11-25] MEDS ORDERED: IBUPROFEN 400 MG TABLET (FP) PO PRN (16:20)
[2022-11-25 19:51] LABS: URINE APPEARANCE CLEAR; URINE BILIRUBIN NEGATIVE (NEGATIVE); URINE COLOR YELLOW; URINE GLUCOSE (UA) NEGATIVE (NEGATIVE); URINE KETONE TRACE (NEGATIVE); URINE LEUK ESTERASE NEGATIVE (NEGATIVE); URINE NITRITE NEGATIVE (NEGATIVE); URINE PROTEIN NEGATIVE (NEGATIVE); URINE UROBILINOGEN 0.2 mg/dL (0.2-1.0)
[2022-11-25] MEDS ORDERED: PATIENT'S OWN MEDICATION (NON-FORMULARY) (Lidocaine Patch Removal 1 EACH Each) MC SCH (22:00)
[2022-11-25] MEDS: LIDOCAINE PATCH REMOVAL MC SCH (22:10)
[2022-11-25] MEDS: ATORVASTATIN CA 10 MG TABLET (FP) PO SCH (22:10)
[2022-11-26] MEDS ORDERED: ACETAMINOPHEN 325 MG TABLET (FP) PO PRN (00:01)
[2022-11-26] MEDS ORDERED: MELATONIN 5 MG TABLETS PO ONE (01:30)
[2022-11-26 04:08] VITALS: BMI 23.3
[2022-11-26] MEDS: INSULIN SLIDING SCALE (NOVOLOG) 1 VIAL SQ SCH ×4 (06:40→23:40)
[2022-11-26] MEDS: ENOXAPARIN NA (PORCINE) 40 MG/0.4 ML DISP.SYRIN SQ SCH (11:20)
[2022-11-26] MEDS: POLYETHYLENE GLYCOL (HEALTHYLAX) 3350 17 GM PACKET PO SCH (11:20)
[2022-11-26] MEDS: LIDOCAINE 5% TOPICAL PATCH TP SCH (11:20)
[2022-11-26] MEDS: metoPROLOL SUCCINATE 25 MG TAB.SR.24H (FP) PO SCH ×2 (11:21→23:31)
[2022-11-26] MEDS: SERTRALINE HCL 50 MG TABLET (FP) PO SCH (11:21)
[2022-11-26] MEDS: CYCLOBENZAPRINE HCL 10 MG TABLET (FP) PO SCH (11:21)
[2022-11-26] MEDS: amLODIPine BESYLATE 5 MG TABLET (FP) PO SCH (11:21)
[2022-11-26] MEDS: VALSARTAN 160 MG TABLET PO SCH (11:21)
[2022-11-26] MEDS: DEXTROSE 5%-NORMAL SALINE 1,000 ML IV SCH (18:04)
[2022-11-26] MEDS: LORazepam 2 MG/ML SDV VIAL IVPUSH PRN (21:51)
[2022-11-26] MEDS: ATORVASTATIN CA 10 MG TABLET (FP) PO SCH (23:34)
[2022-11-26] MEDS: LIDOCAINE PATCH REMOVAL MC SCH (23:35)
[2022-11-27] MEDS: INSULIN SLIDING SCALE (NOVOLOG) 1 VIAL SQ SCH ×4 (06:53→22:02)
[2022-11-27] MEDS: LORazepam 2 MG/ML SDV VIAL IVPUSH PRN (06:53)
[2022-11-27] MEDS: DEXTROSE 5%-NORMAL SALINE 1,000 ML IV SCH ×2 (06:57→20:22)
[2022-11-27] MEDS: metoPROLOL SUCCINATE 25 MG TAB.SR.24H (FP) PO SCH ×2 (10:46→22:02)
[2022-11-27] MEDS: amLODIPine BESYLATE 5 MG TABLET (FP) PO SCH (10:46)
[2022-11-27] MEDS: POLYETHYLENE GLYCOL (HEALTHYLAX) 3350 17 GM PACKET PO SCH (10:47)
[2022-11-27] MEDS: ENOXAPARIN NA (PORCINE) 40 MG/0.4 ML DISP.SYRIN SQ SCH (10:47)
[2022-11-27] MEDS: VALSARTAN 160 MG TABLET PO SCH (10:47)
[2022-11-27] MEDS: LIDOCAINE 5% TOPICAL PATCH TP SCH (10:47)
[2022-11-27] MEDS: SERTRALINE HCL 50 MG TABLET (FP) PO SCH (10:47)
[2022-11-27] MEDS ORDERED: INSULIN (NOVOLOG) ASPART 100 UNITS/ML 10ML VIAL ONE ×2 (17:34→22:00)
[2022-11-27] MEDS: ATORVASTATIN CA 10 MG TABLET (FP) PO SCH (22:02)
[2022-11-27] MEDS: LIDOCAINE PATCH REMOVAL MC SCH (22:05)
[2022-11-28] MEDS ORDERED: INSULIN (NOVOLOG) ASPART 100 UNITS/ML 10ML VIAL ONE ×3 (06:23→21:46)
[2022-11-28] MEDS: INSULIN SLIDING SCALE (NOVOLOG) 1 VIAL SQ SCH ×4 (06:49→21:48)
[2022-11-28 08:57] LABS: BASO % 0.5 % (0-2.0); EOS % 1.3 % (0-4.5); HEMOGLOBIN 11.1 GM/dL (10.7-15.3); LYMPH % 20.9 % (8-40); MCH 29.3 pg (25.7-33.7); MCHC 32.8 g/dl (32.0-36.0); MEAN CELL VOLUME 89.4 fl (80-96); MEAN PLT VOLUME 8.7 fl (7.5-11.1); MONO % 6.2 % (3.8-10.2); NEUT % 71.1 % (42.8-82.8); PLATELET COUNT 438 10^3/uL (134-434); RDW 12.8 % (11.6-15.6); WHITE BLOOD COUNT 7.6 K/mm3 (4.0-10.0)
[2022-11-28 09:20] LABS: POTASSIUM 4.1 mmol/L (3.5-5.1)
[2022-11-28 09:32] LABS: CALCIUM 8.3 mg/dL (8.5-10.1)
[2022-11-28 09:33] LABS: ALBUMIN 2.7 g/dl (3.4-5.0); BLOOD UREA NITROGEN 6.6 mg/dL (7-18)
[2022-11-28 09:36] LABS: CREATININE 0.5 mg/dL (0.55-1.3)
[2022-11-28 09:38] LABS: BILIRUBIN,TOTAL 0.4 mg/dL (0.2-1)
[2022-11-28] MEDS: VALSARTAN 160 MG TABLET PO SCH (10:27)
[2022-11-28] MEDS: SERTRALINE HCL 50 MG TABLET (FP) PO SCH (10:27)
[2022-11-28] MEDS: amLODIPine BESYLATE 5 MG TABLET (FP) PO SCH (10:28)
[2022-11-28] MEDS: ENOXAPARIN NA (PORCINE) 40 MG/0.4 ML DISP.SYRIN SQ SCH (10:28)
[2022-11-28] MEDS: metoPROLOL SUCCINATE 25 MG TAB.SR.24H (FP) PO SCH ×2 (10:28→21:48)
[2022-11-28] MEDS: LIDOCAINE 5% TOPICAL PATCH TP SCH (10:28)
[2022-11-28] MEDS: POLYETHYLENE GLYCOL (HEALTHYLAX) 3350 17 GM PACKET PO SCH (10:29)
[2022-11-28] MEDS: DEXTROSE 5%-NORMAL SALINE 1,000 ML IV SCH (18:36)
[2022-11-28] MEDS: ATORVASTATIN CA 10 MG TABLET (FP) PO SCH (21:48)
[2022-11-28] MEDS: LIDOCAINE PATCH REMOVAL MC SCH (21:49)
[2022-11-29] MEDS: INSULIN SLIDING SCALE (NOVOLOG) 1 VIAL SQ SCH ×3 (06:27→17:45)
[2022-11-29] MEDS: amLODIPine BESYLATE 5 MG TABLET (FP) PO SCH (09:32)
[2022-11-29] MEDS: SERTRALINE HCL 50 MG TABLET (FP) PO SCH (09:32)
[2022-11-29] MEDS: LIDOCAINE 5% TOPICAL PATCH TP SCH (09:32)
[2022-11-29] MEDS: VALSARTAN 160 MG TABLET PO SCH (09:32)
[2022-11-29] MEDS: POLYETHYLENE GLYCOL (HEALTHYLAX) 3350 17 GM PACKET PO SCH (09:32)
[2022-11-29] MEDS: ENOXAPARIN NA (PORCINE) 40 MG/0.4 ML DISP.SYRIN SQ SCH (09:32)
[2022-11-29] MEDS: metoPROLOL SUCCINATE 25 MG TAB.SR.24H (FP) PO SCH (09:33)
[2022-11-29 14:47] VITALS: RESP 16
[2022-11-29 21:46] VITALS: BP 136/68; PULSE 91; TEMP 98.6
== END 2022-11-29 21:15 | DRG 70 ==
LOC: JER 15:49 → JERBED 20:56 → OBSVTOIN 11-25 12:30 → J8W 11-25 19:52
PROVIDERS: ADMIT Internal Medicine; ATTEND Internal Medicine
DX: G93.41 Metabolic encephalopathy (principal); U07.1 COVID-19; R41.82 Altered mental status, unspecified; M25.551 Pain in right hip; E11.9 Type 2 diabetes mellitus without complications; I10 Essential (primary) hypertension; E78.5 Hyperlipidemia, unspecified; K21.9 Gastro-esophageal reflux disease without esophagitis; M25.569 Pain in unspecified knee; W18.30XA Fall on same level, unspecified, initial encounter; Y93.89 Activity, other specified; Y92.098 Other place in other non-institutional residence as the place of occurrence of the external cause
CPT/HCPCS: 0241U-QW; 36415; 70450-TC; 71045-TC-FY; 72125-TC; 72170-TC-FY; 73502-TC-RT-FY; 73562-TC-RT-FY; 80048; 80053; 81003; 82962; 83735; 84100; 84484; 85025; 85610; 85730; 87086; 93005; 93010; 97116-GP; 97161-GP; 99285-25; G0378